=== PATIENT | female | born 1960 | race Caucasian/White ===

== ENCOUNTER 2019-10-13 11:33 | Emergency (ER) | payer OTHER ==
[2019-10-13] MEDS ORDERED: DIAZEPAM 5 MG/ML 2 ML INJ IVP STA (12:03)
[2019-10-13] MEDS ORDERED: KETOROLAC 60 MG/2 ML VIAL IVP STA (12:03)
--- NOTE | 2019-10-13 12:05 | ED ---
General Adult HPI - General Chief complaint: Back Pain/Injury Stated complaint: Back/abd pain Time Seen by Provider: 10/13/19 11:40 Source: patient, RN notes reviewed, old records reviewed Mode of arrival: ambulatory Limitations: no limitations - History of Present Illness Initial comments: This is a 59-year-old female presents emergency Department with chronic back pain. Patient states she's been working on her home quite a bit with her because they are building a new house. Patient states she started having mid back pain on both sides spine it radiates around to the flank. Patient denies any known injury. Patient states it hurts with movement. Patient states there's been no abdominal pain. She had some cramping this morning but that has been gone since then. Patient denies any dysuria hematuria urinary frequency. Patient denies any fever chills. - Related Data Home Medications Medication Instructions Recorded Confirmed ALPRAZolam [Xanax] 1 mg PO Q12H PRN 10/13/19 10/13/19 tiZANidine [Zanaflex] 4 mg PO Q12H PRN 10/13/19 10/13/19 traMADol HCL 50 mg PO Q6H PRN 10/13/19 10/13/19 Previous Rx's Medication Instructions Recorded tiZANidine [Zanaflex] 4 mg PO Q12H #20 tab 10/13/19 Allergies Allergy/AdvReac Type Severity Reaction Status Date / Time hydrocodone [From Vicodin] AdvReac Nausea & Verified 10/13/19 14:30 Vomiting Review of Systems ROS Statement: Those systems with pertinent positive or pertinent negative responses have been documented in the HPI. ROS Other: All systems not noted in ROS Statement are negative. Past Medical History Additional Past Medical History / Comment(s): back pain History of Any Multi-Drug Resistant Organisms: None Reported Past Surgical History: Orthopedic Surgery Additional Past Surgical History / Comment(s): knee replacement x 2, ankle surgery, neck surgery Past Psychological History: No Psychological Hx Reported Smoking Status: Light tobacco smoker Past Alcohol Use History: Occasional Past Drug Use History: None Reported General Exam - General Exam Comments Initial Comments: GENERAL: Patient is well-developed and well-nourished. Patient is nontoxic and well- hydrated and is in mild distress. ENT: Neck is soft and supple. No significant lymphadenopathy is noted. Oropharynx is clear. Moist mucous membranes. Neck has full range of motion without eliciting any pain. EYES: The sclera were anicteric and conjunctiva were pink and moist. Extraocular movements were intact and pupils were equal round and reactive to light. Eyelids were unremarkable. PULMONARY: Unlabored respirations. Good breath sounds bilaterally. No audible rales rhonchi or wheezing was noted. CARDIOVASCULAR: There is a regular rate and rhythm without any murmurs gallops or rubs. ABDOMEN: Soft and nontender with normal bowel sounds. No palpable organomegaly was noted. There is no palpable pulsatile mass. SKIN: Skin is clear with no lesions or rashes and otherwise unremarkable. NEUROLOGIC: Patient is alert and oriented x3. Cranial nerves II through XII are grossly intact. Motor and sensory are also intact. Normal speech, volume and content. Symmetrical smile. Patient's straight leg test was negative bilaterally. Patient had normal peritoneum exam. MUSCULOSKELETAL: Normal extremities with adequate strength and full range of motion. No lower extremity swelling or edema. No calf tenderness. Palpating the back and reproducible chest pain. LYMPHATICS: No significant lymphadenopathy is noted PSYCHIATRIC: Normal psychiatric evaluation. N Limitations: no limitations Course Vital Signs 10/13/19 11:37 Temperature 97.4 F L Pulse Rate 103 H Respiratory 20 Rate Blood Pressure 103/73 O2 Sat by Pulse 100 Oximetry Medical Decision Making - Medical Decision Making Patient received Toradol and Valium and found some relief but got complete relief after 1 mg Dilaudid. - Lab Data Result diagrams: 10/13/19 12:20 10/13/19 12:20 Lab Results 10/13/19 10/13/19 10/13/19 Range/Units 12:20 12:20 12:20 WBC 3.0 L (3.8-10.6) k/uL RBC 5.00 (3.80-5.40) m/uL Hgb 15.5 (11.4-16.0) gm/dL Hct 46.3 H (34.0-46.0) % MCV 92.6 (80.0-100.0) fL MCH 30.9 (25.0-35.0) pg MCHC 33.4 (31.0-37.0) g/dL RDW 13.3 (11.5-15.5) % Plt Count 155 (150-450) k/uL Neutrophils % 49 % Lymphocytes % 32 % Monocytes % 14 % Eosinophils % 0 % Basophils % 1 % Neutrophils # 1.5 (1.3-7.7) k/uL Lymphocytes # 1.0 (1.0-4.8) k/uL Monocytes # 0.4 (0-1.0) k/uL Eosinophils # 0.0 (0-0.7) k/uL Basophils # 0.0 (0-0.2) k/uL Sodium 137 (137-145) mmol/L Potassium 4.6 (3.5-5.1) mmol/L Chloride 110 H (98-107) mmol/L Carbon Dioxide 17 L (22-30) mmol/L Anion Gap 10 mmol/L BUN 23 H (7-17) mg/dL Creatinine 1.02 (0.52-1.04) mg/dL Est GFR (CKD-EPI)AfAm 70 (>60 ml/min/1.73 sqM) Est GFR (CKD-EPI)NonAf 61 (>60 ml/min/1.73 sqM) Glucose 89 (74-99) mg/dL Calcium 9.6 (8.4-10.2) mg/dL Magnesium 1.7 (1.6-2.3) mg/dL Total Bilirubin 0.5 (0.2-1.3) mg/dL AST 39 H (14-36) U/L ALT 42 H (4-34) U/L Alkaline Phosphatase 106 (38-126) U/L Total Protein 7.2 (6.3-8.2) g/dL Albumin 4.0 (3.5-5.0) g/dL Urine Color Yellow Urine Appearance Cloudy H (Clear) Urine pH 5.5 (5.0-8.0) Ur Specific [place] 1.027 (1.001-1.035) Urine Protein 1+ H (Negative) Urine Glucose (UA) Negative (Negative) Urine Ketones Negative (Negative) Urine Blood Negative (Negative) Urine Nitrite Negative (Negative) Urine Bilirubin Negative (Negative) Urine Urobilinogen 2.0 (<2.0) mg/dL Ur Leukocyte Esterase Large H (Negative) Urine WBC 23 H (0-5) /hpf Ur Squamous Epith Cells 11 H (0-4) /hpf Urine Bacteria Rare H (None) /hpf Hyaline Casts 10 H (0-2) /lpf Urine Mucus Few H (None) /hpf Disposition Clinical Impression: Thoracic back pain Disposition: HOME SELF-CARE Condition: Good Instructions (If sedation given, give patient instructions): Back Pain (ED) Prescriptions: tiZANidine [Zanaflex] 4 mg PO Q12H #20 tab Is patient prescribed a controlled substance at d/c from ED?: No Referrals: Nonstaff,Physician [Primary Care Provider] - 1-2 days Time of Disposition: 14:58
[2019-10-13 13:15] LABS: Appearance,Urine Cloudy (Clear); Bacteria,Urine Rare /hpf; Bilirubin,Urine Negative (Negative); Blood,Urine Negative (Negative); Color,Urine Yellow; Glucose,Urine (UA) Negative (Negative); Hyaline Casts,Urine 10 /lpf (0-2); Ketones,Urine Negative (Negative); Leukocyte Esterase,Urine Large (Negative); Mucus,Urine Few /hpf; Nitrite,Urine Negative (Negative); PH, Urine 5.5 (5.0-8.0); Protein,Urine 1+ (Negative); Specific Gravity,Urine 1.027 (1.001-1.035); Squamous Epithelial Cell,Urine 11 /hpf (0-4); WBC,Urine 23 /hpf (0-5)
[2019-10-13 13:18] LABS: Basophils % (A) 1 %; Eosinophils % (A) 0 %; HCT 46.3 % (34.0-46.0); HGB 15.5 gm/dL (11.4-16.0); Lymphocytes % (A) 32 %; MCH 30.9 pg (25.0-35.0); MCHC 33.4 g/dL (31.0-37.0); MCV 92.6 fL (80.0-100.0); Mean Platelet Volume 9.1; Monocytes # (A) 0.4 k/uL (0-1.0); Monocytes % (A) 14 %; Neutrophils # (A) 1.5 k/uL (1.3-7.7); Neutrophils % (A) 49 %; Platelet Count 155 k/uL (150-450); RDW 13.3 % (11.5-15.5)
[2019-10-13 13:19] LABS: Calcium 9.6 mg/dL (8.4-10.2); Magnesium 1.7 mg/dL (1.6-2.3); Potassium 4.6 mmol/L (3.5-5.1); Total Bilirubin 0.5 mg/dL (0.2-1.3); Total Protein 7.2 g/dL (6.3-8.2)
[2019-10-13] MEDS ORDERED: HYDROmorphone 1 MG/ML 1 ML SYRINGE IVP STA (13:56)
[2019-10-13 15:19] VITALS: BP 102/75; PULSE 66; RESP 18; TEMP 98.1
== END 2019-10-13 15:19 | disposition home or self-care (01) ==
LOC: EC 11:33
DX: M54.6 Pain in thoracic spine (principal); F17.200 Nicotine dependence, unspecified, uncomplicated; Z96.659 Presence of unspecified artificial knee joint; Z88.5 Allergy status to narcotic agent
CPT/HCPCS: 36415; 80053; 83735; 85025; 81001; 87086; 99284; 96374; 96375 ×2; J3360; J1885; J1170

== ENCOUNTER 2020-06-11 17:30 | Inpatient (IN) | payer OTHER ==
[2020-06-11] MEDS ORDERED: MORPHINE SULFATE 4 MG/ML SYRINGE IVP STA (18:11)
[2020-06-11] MEDS ORDERED: ONDANSETRON 4 MG/2 ML VIAL IVP STA ×2 (18:11→20:19)
[2020-06-11] MEDS ORDERED: SODIUM CHLORIDE 0.9% 1,000 ML IV ONE (18:12)
--- NOTE | 2020-06-11 18:27 | ED ---
Abdominal Pain HPI - General Chief Complaint: Abdominal Pain Stated Complaint: abd pain Time Seen by Provider: 06/11/20 17:35 Source: patient Mode of arrival: ambulatory Limitations: no limitations - History of Present Illness Initial Comments: Patient is a 60 year old female past medical history of peptic ulcer disease presents emergency room with reported epigastric abdominal pain. States that for the past 3 week she's had pain in epigastric region which occurs after she eats. Pain radiates around to her back. Reports that the pain was significant this morning after she ate rogers and eggs. His had multiple episodes of nonbilious, nonbloody vomiting. Denies ripping or tearing sensation. No previous history of cardiac disease. Denies shortness of breath. Admits to constipation. No melenic stools or hematochezia. No dysuria, hematuria or difficult voiding. Patient is in menopause. Denies concern for . No abnormal vaginal bleeding or discharge. He was seen recently in the emergency room and diagnosed with back pain. No other alleviating, Perceptin or modifying factors - Related Data Home Medications Medication Instructions Recorded Confirmed ALPRAZolam [Xanax] 1 mg PO Q12H PRN 10/13/19 06/11/20 tiZANidine [Zanaflex] 4 mg PO Q12H PRN 10/13/19 06/11/20 traMADol HCL 50 mg PO Q6H PRN 10/13/19 06/11/20 [id number] 2 tab PO DAILY PRN 06/11/20 06/11/20 [Excedrin] Esomeprazole Magnesium [NexIUM] 20 mg PO BID 06/11/20 06/11/20 Previous Rx's Medication Instructions Recorded Levofloxacin [Levaquin] 500 mg PO Q24H 7 Days #7 tab 06/16/20 Allergies Allergy/AdvReac Type Severity Reaction Status Date / Time hydrocodone [From Vicodin] AdvReac Nausea & Verified 06/11/20 20:47 Vomiting hydromorphone [From Dilaudid] AdvReac Nausea & Verified 06/12/20 12:00 Vomiting Review of Systems ROS Statement: Those systems with pertinent positive or pertinent negative responses have been documented in the HPI. ROS Other: All systems not noted in ROS Statement are negative. Past Medical History Additional Past Medical History / Comment(s): back pain, PUD, History of Any Multi-Drug Resistant Organisms: None Reported Past Surgical History: Orthopedic Surgery Additional Past Surgical History / Comment(s): knee replacement x 2, ankle surgery, neck surgery Past Psychological History: No Psychological Hx Reported Smoking Status: Former smoker Past Alcohol Use History: Occasional Past Drug Use History: None Reported - Past Family History Father Family Medical History: Coronary Artery Disease (CAD) Mother Family Medical History: No Reported History General Exam Limitations: no limitations General appearance: alert, in distress (in pain) Head exam: Present: atraumatic, normocephalic, normal inspection Eye exam: Present: normal appearance, PERRL, EOMI. Absent: scleral icterus, conjunctival injection, periorbital swelling ENT exam: Present: normal exam, mucous membranes moist Neck exam: Present: normal inspection. Absent: tenderness, meningismus, lymphadenopathy Respiratory exam: Present: normal lung sounds bilaterally. Absent: respiratory distress, wheezes, rales, rhonchi, stridor Cardiovascular Exam: Present: regular rate, normal rhythm, normal heart sounds. Absent: systolic murmur, diastolic murmur, rubs, gallop, clicks GI/Abdominal exam: Present: soft, tenderness (epigastric), normal bowel sounds. Absent: distended, guarding, rebound, rigid Extremities exam: Present: normal inspection, full ROM, normal capillary refill. Absent: tenderness, pedal edema, joint swelling, calf tenderness Back exam: Present: normal inspection Neurological exam: Present: alert, oriented X3, CN II-XII intact Psychiatric exam: Present: normal affect, normal mood Skin exam: Present: warm, dry, intact, normal color. Absent: rash Course Vital Signs 06/11/20 06/11/20 17:34 20:00 Temperature 98.6 F Pulse Rate 80 96 Respiratory 16 18 Rate Blood Pressure 142/72 136/72 O2 Sat by Pulse 100 99 Oximetry Medical Decision Making - Medical Decision Making Upon arrival patient placed into room 3. A thorough history and physical exam was performed. Laboratory studies were conducted. Patient was given 4 mg of morphine and 4 mg of Zofran for pain and nausea. Laboratory studies are remarkable for a white count of 12.4. Total bilirubin 1.8, AST 405, ALT 356, alk phos 447, LDH 822, lipase is greater than 20,000. CT consistent with pancreatitis as there are inflammatory changes adjacent to the body of the pancr eas. Distended gallbladder. Very prominent common bile duct. 12 are ultrasound is performed which demonstrates a 1.6 cm dilated common bile duct. Patient is given a dose of Zosyn. Chace score is 3. Patient will be admitted to [facility]. Discuss case Dr. Patel who accepted admission. I discussed the case with Dr. Carty who is on-call for surgery. GI will also be placed on consult. Patient will be made nothing by mouth at midnight. Pain and nausea medications ordered. Patient remained in stable condition awaiting a bed on the floor - Lab Data Result diagrams: 06/16/20 06:15 06/16/20 06:15 Lab Results 06/11/20 06/11/20 06/11/20 Range/Units 18:32 18:32 18:32 WBC 12.4 H (3.8-10.6) k/uL RBC 4.08 (3.80-5.40) m/uL Hgb 12.6 (11.4-16.0) gm/dL Hct 38.9 (34.0-46.0) % MCV 95.2 (80.0-100.0) fL MCH 30.7 (25.0-35.0) pg MCHC 32.3 (31.0-37.0) g/dL RDW 13.3 (11.5-15.5) % Plt Count 243 (150-450) k/uL Neutrophils % 82 % Lymphocytes % 12 % Monocytes % 3 % Eosinophils % 3 % Basophils % 0 % Neutrophils # 10.1 H (1.3-7.7) k/uL Lymphocytes # 1.5 (1.0-4.8) k/uL Monocytes # 0.4 (0-1.0) k/uL Eosinophils # 0.3 (0-0.7) k/uL Basophils # 0.0 (0-0.2) k/uL PT 10.0 (9.0-12.0) sec INR 1.0 (<1.2) APTT 18.6 L (22.0-30.0) sec Sodium (137-145) mmol/L Potassium (3.5-5.1) mmol/L Chloride (98-107) mmol/L Carbon Dioxide (22-30) mmol/L Anion Gap mmol/L BUN (7-17) mg/dL Creatinine (0.52-1.04) mg/dL Est GFR (CKD-EPI)AfAm (>60 ml/min/1.73 sqM) Est GFR (CKD-EPI)NonAf (>60 ml/min/1.73 sqM) Glucose (74-99) mg/dL Plasma Lactic Acid [place] (0.7-2.0) mmol/L Calcium (8.4-10.2) mg/dL Total Bilirubin (0.2-1.3) mg/dL AST (14-36) U/L ALT (4-34) U/L Alkaline Phosphatase (38-126) U/L Total Protein (6.3-8.2) g/dL Albumin (3.5-5.0) g/dL Lipase (23-300) U/L Urine Color Yellow Urine Appearance Clear (Clear) Urine pH 7.5 (5.0-8.0) Ur Specific [place] 1.025 (1.001-1.035) Urine Protein Negative (Negative) Urine Glucose (UA) Negative (Negative) Urine Ketones Trace H (Negative) Urine Blood Negative (Negative) Urine Nitrite Negative (Negative) Urine Bilirubin Negative (Negative) Urine Urobilinogen <2.0 (<2.0) mg/dL Ur Leukocyte Esterase Negative (Negative) 06/11/20 06/11/20 Range/Units 18:32 18:32 WBC (3.8-10.6) k/uL RBC (3.80-5.40) m/uL Hgb (11.4-16.0) gm/dL Hct (34.0-46.0) % MCV (80.0-100.0) fL MCH (25.0-35.0) pg MCHC (31.0-37.0) g/dL RDW (11.5-15.5) % Plt Count (150-450) k/uL Neutrophils % % Lymphocytes % % Monocytes % % Eosinophils % % Basophils % % Neutrophils # (1.3-7.7) k/uL Lymphocytes # (1.0-4.8) k/uL Monocytes # (0-1.0) k/uL Eosinophils # (0-0.7) k/uL Basophils # (0-0.2) k/uL PT (9.0-12.0) sec INR (<1.2) APTT (22.0-30.0) sec Sodium 138 (137-145) mmol/L Potassium 4.7 (3.5-5.1) mmol/L Chloride 105 (98-107) mmol/L Carbon Dioxide 25 (22-30) mmol/L Anion Gap 8 mmol/L BUN 20 H (7-17) mg/dL Creatinine 0.80 (0.52-1.04) mg/dL Est GFR (CKD-EPI)AfAm >90 (>60 ml/min/1.73 sqM) Est GFR (CKD-EPI)NonAf 81 (>60 ml/min/1.73 sqM) Glucose 98 (74-99) mg/dL Plasma Lactic Acid [place] 1.9 (0.7-2.0) mmol/L Calcium 9.5 (8.4-10.2) mg/dL Total Bilirubin 1.8 H (0.2-1.3) mg/dL AST 405 H (14-36) U/L ALT 356 H (4-34) U/L Alkaline Phosphatase 447 H (38-126) U/L Total Protein 6.8 (6.3-8.2) g/dL Albumin 3.9 (3.5-5.0) g/dL Lipase >59006 H (23-300) U/L Urine Color Urine Appearance (Clear) Urine pH (5.0-8.0) Ur Specific [place] (1.001-1.035) Urine Protein (Negative) Urine Glucose (UA) (Negative) Urine Ketones (Negative) Urine Blood (Negative) Urine Nitrite (Negative) Urine Bilirubin (Negative) Urine Urobilinogen (<2.0) mg/dL Ur Leukocyte Esterase (Negative) - EKG Data EKG Comments: EKG demonstrates a normal sinus rhythm with occasional PVCs. Rate of 92. LA interval 156. QRS 86. QTC of 464. Occasional PVCs. No acute ST segment elevations or depressions Disposition Clinical Impression: Acute pancreatitis, Abdominal pain, Transaminitis, Nausea and vomiting Disposition: ADMITTED IP TO [facility] Condition: Fair Is patient prescribed a controlled substance at d/c from ED?: No Decision to Admit Reason: Admit from EC Decision Date: 06/11/20 Decision Time: 20:19
[2020-06-11 18:43] LABS: Basophils % (A) 0 %; Eosinophils # (A) 0.3 k/uL (0-0.7); Eosinophils % (A) 3 %; HCT 38.9 % (34.0-46.0); HGB 12.6 gm/dL (11.4-16.0); Lymphocytes # (A) 1.5 k/uL (1.0-4.8); Lymphocytes % (A) 12 %; MCH 30.7 pg (25.0-35.0); MCHC 32.3 g/dL (31.0-37.0); MCV 95.2 fL (80.0-100.0); Monocytes # (A) 0.4 k/uL (0-1.0); Monocytes % (A) 3 %; Neutrophils # (A) 10.1 k/uL (1.3-7.7); Neutrophils % (A) 82 %; Platelet Count 243 k/uL (150-450); RBC 4.08 m/uL (3.80-5.40); RDW 13.3 % (11.5-15.5); WBC 12.4 k/uL (3.8-10.6)
[2020-06-11 19:01] LABS: Partial Thromboplastin Time 18.6 sec (22.0-30.0)
[2020-06-11 19:03] LABS: ALT 356 U/L (4-34); AST 405 U/L (14-36); African American GFR (CKD) >90 (>60 ml/min/1.73 sqM); Albumin 3.9 g/dL (3.5-5.0); Alkaline Phosphatase 447 U/L (38-126); Anion Gap 8 mmol/L; Blood Urea Nitrogen 20 mg/dL (7-17); Calcium 9.5 mg/dL (8.4-10.2); Carbon Dioxide 25 mmol/L (22-30); Chloride 105 mmol/L (98-107); Glucose 98 mg/dL (74-99); Non-African American GFR(CKD) 81 (>60 ml/min/1.73 sqM); Potassium 4.7 mmol/L (3.5-5.1); Sodium 138 mmol/L (137-145); Total Bilirubin 1.8 mg/dL (0.2-1.3); Total Protein 6.8 g/dL (6.3-8.2)
--- NOTE | 2020-06-11 19:26 | CT ---
EXAMINATION TYPE: CT abdomen pelvis w con DATE OF EXAM: 06/11/2020 COMPARISON: None INDICATION: abdomen pain DLP: 850.1 mGycm, Automated exposure control for dose reduction was used. CONTRAST: 100 mL of Isovue 300. Study performed without Oral Contrast TECHNIQUE: Axial images were obtained from above the diaphragm to the pubic rami in the axial plane a t 5 mm thick sections. Reconstructed images are reviewed on the computer in the coronal plane. FINDINGS: Limited CT sections are obtained the lung bases. The lung bases are clear. CT ABDOMEN: Liver: Intrahepatic biliary dilatation centrally is present. Spleen: Normal Pancreas: Some inflammatory changes are adjacent to the body the pancreas. Correlate for acute pancre atitis. Adrenal glands: The adrenal glands are normal. Gallbladder: Distended. Common bile duct is very prominent. This extends to the head of the pancreas. Kidneys: No masses are evident. No hydronephrosis is present. No cysts are present. Delayed images were obtained through the kidneys, which remain unremarkable. Aorta: Normal Inferior vena cava: Normal. CT PELVIS: Multiple diverticuli are within the sigmoid colon. No acute diverticulitis is evident. Small bowel lo ops appear unremarkable. Study is without contrast limiting bowel evaluation Appendix: Normal as visualized. No inflammatory changes are evident. Urinary bladder: Normal. Genitourinary structures: Uterus and ovaries are normal. Osseous structures: No suspicious lytic or sclerotic lesions. Degenerative disc changes are present L 5-S1. Degenerative disc changes are noted at L4-5. IMPRESSIONS: 1. Inflammatory changes adjacent to the body the pancreas. Correlate for acute pancreatitis. No pseu docyst formation or abscess formation is identified at this time. 2. Distended gallbladder with very prominent common bile duct. Some hepatic bile duct dilatation is p resent.
[2020-06-11] MEDS ORDERED: NALOXONE 0.4 MG/ML 1 ML VIAL IV PRN (20:20)
[2020-06-11] MEDS ORDERED: ACETAMINOPHEN TAB 325 MG TAB PO STA (20:20)
[2020-06-11] MEDS ORDERED: ONDANSETRON 4 MG/2 ML VIAL IVP PRN (20:20)
--- NOTE | 2020-06-11 20:33 | US ---
EXAMINATION TYPE: US gallbladder DATE OF EXAM: 06/11/2020 COMPARISON: CT 06/11/2020 CLINICAL HISTORY: abd pain. EXAM MEASUREMENTS: Liver Length: 16.7 cm Gallbladder Wall: 0.4 cm CBD: 1.6 cm Right Kidney: 9.2 x 4.6 x 4.5 cm Pancreas: prominent duct at 0.4 cm Liver: intrahepatic ductal dilatation Gallbladder: distended at 11.0 cm Evidence for sonographic Mortensen's sign: Yes CBD: dilated at 1.6 cm Right Kidney: No hydronephrosis or masses seen IMPRESSION: 1. Distended gallbladder with dilated common bile duct and a positive Mortensen sign. Correlate for acut e cholecystitis. Note is made of intrahepatic clearly duct dilatation. 2. Prominent pancreatic duct. Follow-up is recommended.
[2020-06-11] MEDS ORDERED: PIPERACILLIN-TAZOBACTAM 3.375 GM in SODIUM CHLORIDE 0.9% 100 ML IVPB STA (20:43)
[2020-06-11 22:11] LABS: Appearance,Urine Clear (Clear); Bilirubin,Urine Negative (Negative); Blood,Urine Negative (Negative); Color,Urine Yellow; Glucose,Urine (UA) Negative (Negative); Ketones,Urine Trace (Negative); Leukocyte Esterase,Urine Negative (Negative); Nitrite,Urine Negative (Negative); PH, Urine 7.5 (5.0-8.0); Protein,Urine Negative (Negative); Specific Gravity,Urine 1.025 (1.001-1.035); Urobilinogen,Urine <2.0 mg/dL (<2.0)
[2020-06-11] MEDS: MORPHINE SULFATE 4 MG/ML SYRINGE IV PRN (22:20)
[2020-06-11] MEDS: SODIUM CHLORIDE 0.9% 1,000 ML IV SCH (22:23)
[2020-06-11] MEDS ORDERED: MORPHINE SULFATE 2 MG/ML SYRINGE IVP STA (22:53)
[2020-06-11] MEDS ORDERED: KETOROLAC 15 MG/ML 1 ML VIAL IVP STA (22:53)
[2020-06-12] MEDS: MORPHINE SULFATE 4 MG/ML SYRINGE IV PRN ×2 (03:14→06:47)
[2020-06-12] MEDS ORDERED: KETOROLAC 15 MG/ML 1 ML VIAL IVP STA (04:40)
--- NOTE | 2020-06-12 04:41 | P.HPIM ---
History of Present Illness H&P Date: 06/11/20 The patient is a 70-year-old female with a PMH of peptic ulcer disease presented to the ED with complaints of abdominal pain. She notes that she has been suffering with chronic abdominal pain for many years, and has undergone multiple evaluations which have yielded no results as per the patient. She notes however that over the past few weeks, her epigastric discomfort has worsened, associated with food (particularly fatty meals). She notes that today however her pain increased to a 10 out of 10, epigastric, radiating to the back, with associated nausea and 3 episodes of nonbloody emesis today. Denied diarrhea. Denied urinary complaints. At time of interview, reported continued 8 out of 10 epigastric pain. Reports drinking only 1-2 beers socially. In the emergency room, CT abdomen revealed findings consistent with pancreatitis along with a distended gallbladder with very prominent common bile duct and some hepatic biliary ductal dilatation. Vital signs were BP 135/80, T-max 100.2, pulse 95, and saturating 100% on room air. EKG reveals sinus rhythm with PVCs at 92 bpm. Laboratory evaluation revealed a lipase greater than 20,000, AST 45, ALT 356, total bilirubin 1.8, alkaline phosphatase 47, LDH 822, and WBC count 12.4. Review of Systems Pertinent positives and negatives as discussed in HPI, a complete review of systems was performed and all other systems are negative. Past Medical History Additional Past Medical History / Comment(s): back pain, PUD, History of Any Multi-Drug Resistant Organisms: None Reported Past Surgical History: Section, Orthopedic Surgery Additional Past Surgical History / Comment(s): knee replacement x 2, ankle surgery, neck surgery Past Anesthesia/Blood Transfusion Reactions: No Reported Reaction Past Psychological History: Anxiety Smoking Status: Former smoker Past Alcohol Use History: Occasional Past Drug Use History: None Reported Additional Drug Use History / Comment(s): patient states she used to smoke cigarettes occasionally when drinking alcohol, no longer smokes. - Past Family History Father Family Medical History: Coronary Artery Disease (CAD) Mother Family Medical History: No Reported History Medications and Allergies Home Medications Medication Instructions Recorded Confirmed Type ALPRAZolam [Xanax] 1 mg PO Q12H PRN 10/13/19 06/11/20 History tiZANidine [Zanaflex] 4 mg PO Q12H PRN 10/13/19 06/11/20 History traMADol HCL 50 mg PO Q6H PRN 10/13/19 06/11/20 History [id number] 2 tab PO DAILY PRN 06/11/20 06/11/20 History [Excedrin] Esomeprazole Magnesium [NexIUM] 20 mg PO BID 06/11/20 06/11/20 History Allergies Allergy/AdvReac Type Severity Reaction Status Date / Time hydrocodone [From Vicodin] AdvReac Nausea & Verified 06/11/20 20:47 Vomiting Physical Exam Vitals: Vital Signs Temp Pulse Pulse Resp BP BP Pulse Ox 06/11/20 22:02 98.9 F 90 18 139/78 100 06/11/20 21:45 100.2 F H 95 20 135/80 100 06/11/20 20:00 96 18 136/72 99 06/11/20 17:34 98.6 F 80 16 142/72 100 Intake and Output 06/11/20 06/11/20 06/12/20 14:59 22:59 06:59 Output Total 375 Balance -375 Output: Urine 375 Other: # Voids 1 Weight 70.5 kg General: non toxic, in mild distress, appears at stated age Derm: no unusual rashes/lesions no unusual ecchymoses, warm, dry Head: atraumatic, normocephalic, symmetric Eyes: EOMI, no lid lag, anicteric sclera, pupils equal round reactive to light ENT: Nose and ears atraumatic, no thrush, no pharyngeal erythema Neck: No thyromegaly, no cervical lymphadenopathy, trachea midline, supple Mouth: no lip lesion, mucus membranes moist Cardiovascular: S1S2 reg, no murmur, positive posterior tibial pulse bilateral, no edema, capillary refill less than 2 seconds Lungs: CTA bilateral, no rhonchi, no rales , no accessory muscle use Abdominal: soft, epigastric tenderness to palpation with some guarding, no appreciable organomegaly Ext: no gross muscle atrophy, muscle strength 5 out of 5 in all 4 extremities grossly, no contractures, Neuro: CN II-XI grossly intact, light touch intact all 4 extremities, finger to nose within normal limits, Psych: Alert, oriented, appropriate affect Results CBC & Chem 7: 06/11/20 18:32 06/11/20 18:32 Labs: Abnormal Lab Results - Last 24 Hours (Table) 06/11/20 06/11/20 06/11/20 Range/Units 18:32 18:32 18:32 WBC 12.4 H (3.8-10.6) k/uL Neutrophils # 10.1 H (1.3-7.7) k/uL APTT 18.6 L (22.0-30.0) sec BUN (7-17) mg/dL Total Bilirubin (0.2-1.3) mg/dL AST (14-36) U/L ALT (4-34) U/L Alkaline Phosphatase (38-126) U/L Lipase (23-300) U/L Urine Ketones Trace H (Negative) 06/11/20 Range/Units 18:32 WBC (3.8-10.6) k/uL Neutrophils # (1.3-7.7) k/uL APTT (22.0-30.0) sec BUN 20 H (7-17) mg/dL Total Bilirubin 1.8 H (0.2-1.3) mg/dL AST 405 H (14-36) U/L ALT 356 H (4-34) U/L Alkaline Phosphatase 447 H (38-126) U/L Lipase >47097 H (23-300) U/L Urine Ketones (Negative) Thrombosis Risk Factor Assmnt - Choose All That Apply Any of the Below Risk Factors Present?: No Each Factor Represents 1 point: Age 41-60 years Other Risk Factors: No Other congenital or acquired thrombophilia - If yes, enter type in comment: No Thrombosis Risk Factor Assessment Total Risk Factor Score: 1 Thrombosis Risk Factor Assessment Level: Very Low Risk Assessment and Plan Plan: Acute cholangitis with pancreatitis -Continue with pain control -GI consult -Nothing by mouth -IV fluids -Continue with Zosyn 3.35 grams every 6 hourly -Anti-emetics DVT prophylaxis -Heparin subq The patient is admitted with an anticipated greater than 2 midnight stay for evaluation of cholangitis CODE STATUS: Full Code Discussed with: Patient Anticipated discharge date: 2-[address]: Home A total of 35 minutes was spent on the care of this complex patient more than 50% of the time was spent in counseling and care coordination.
[2020-06-12] MEDS ORDERED: PIPERACILLIN-TAZOBACTAM 3.375 GM in SODIUM CHLORIDE 0.9% 100 ML IVPB SCH (05:30)
[2020-06-12 05:57] LABS: Basophils % (A) 0 %; Eosinophils % (A) 1 %; HCT 36.5 % (34.0-46.0); HGB 11.3 gm/dL (11.4-16.0); Lymphocytes # (A) 0.7 k/uL (1.0-4.8); Lymphocytes % (A) 13 %; MCH 29.9 pg (25.0-35.0); MCV 96.6 fL (80.0-100.0); Mean Platelet Volume 8.5; Monocytes # (A) 0.4 k/uL (0-1.0); Monocytes % (A) 7 %; Neutrophils % (A) 77 %; Platelet Count 166 k/uL (150-450); RBC 3.78 m/uL (3.80-5.40); RDW 13.3 % (11.5-15.5); WBC 5.2 k/uL (3.8-10.6)
[2020-06-12 06:09] LABS: African American GFR (CKD) >90 (>60 ml/min/1.73 sqM); Anion Gap 2 mmol/L; Blood Urea Nitrogen 16 mg/dL (7-17); Calcium 8.3 mg/dL (8.4-10.2); Carbon Dioxide 27 mmol/L (22-30); Chloride 111 mmol/L (98-107); Glucose 91 mg/dL (74-99); Non-African American GFR(CKD) 87 (>60 ml/min/1.73 sqM); Potassium 4.7 mmol/L (3.5-5.1); Sodium 140 mmol/L (137-145)
[2020-06-12] MEDS: SODIUM CHLORIDE 0.9% 1,000 ML IV SCH ×4 (06:47→22:27)
[2020-06-12] MEDS: PIPERACILLIN-TAZOBACTAM 3.375 GM in SODIUM CHLORIDE 0.9% 100 ML IVPB SCH ×3 (06:50→23:02)
[2020-06-12] MEDS ORDERED: HYDROmorphone 0.5 MG/0.5 ML SYRINGE IVP PRN (08:14)
[2020-06-12] MEDS: HEPARIN SODIUM,PORCINE 5,000 UNIT/ML 1 ML VIAL SQ SCH ×3 (08:19→23:02)
--- NOTE | 2020-06-12 08:38 | P.PN ---
Subjective Progress Note Date: 06/12/20 Principal diagnosis: belly pain Patient is a 60-year-old female with chronic back and neck pain, peptic ulcer disease, prior tobacco abuse who presented to the hospital with complaints of abdominal pain. In the ER she underwent an extensive evaluation. On arrival her vital signs were within normal limits. She did reach a T-max of 100.2 on the ER. Initial laboratory analysis showed white blood cell count 12.4, total bilirubin 1.8, AST 405, ALT 356 alkaline phosphatase 447, lipase greater than 20,000, LDH 822, urinalysis is negative. She underwent a CT abdomen and pelvis which demonstrated inflammatory changes adjacent to the body of the pancreas with no pseudocyst or abscess formation. Also noted a distended gallbladder with very prominent common bile duct and some hepatic duct dilatation. She subsequently underwent a gallbladder ultrasound which showed a distended gallbladder with dilated common bile duct and a positive Mortensen sign. She was started on IV fluids, pain control, antiemetics, Rocephin, and Flagyl. She was admitted for further monitoring. GI and general surgery were consulted. Patient seen and examined at bedside. She reports that her pain is much better than yesterday. She is not having any nausea. Morphine is working well. She is having some chronic neck pain which is typical for her. She reports that she has had intermittent abdominal pain for years with her has diagnosis gallbladder dysfunction though no doctor has. She has no other complaints currently. General: Ill appearing, mild distress,, appears at stated age Derm: warm, dry Head: atraumatic, normocephalic, symmetric Eyes: EOMI, no lid lag, anicteric sclera Mouth: no lip lesion, mucus membranes moist Cardiovascular: S1S2 reg, no murmur, positive posterior tibial pulse bilateral, Lungs: CTA bilateral, no rhonchi, no rales , no accessory muscle use Abdominal: soft, tender to palpation right upper quadrant and right lower quadrant, no guarding, no appreciable organomegaly Ext: no gross muscle atrophy, no edema, no contractures Neuro: CN II-XI grossly intact, no focal neuro deficits Psych: Alert, oriented, appropriate affect Acute cholecystitis with acute pancreatitis secondary to gallbladder dysfunction, with sepsis -IV fluids -Nothing by mouth -Pain control -Antiemetics -Rocephin and Flagyl -Await GI recommendations -Await surgery recommendations -Discussed with patient likely ERCP followed by cholecystectomy at a later date. Transaminitis secondary to above -Supportive care -Follow liver enzymes Chronic pain due to Arthritis -Continue with Toradol -Supportive care DVT prophylaxis: Heparin Discussed with: Patient, nursing Anticipated discharge: 3-[address]: Home A total of 35 minutes was spent on the care of this complex patient more than 50% of the time was spent in counseling and care coordination. Objective - Vital Signs Vital signs: Vital Signs Temp 98.5 F 06/12/20 08:15 Pulse 64 06/12/20 08:15 Resp 16 06/12/20 08:15 BP 121/77 06/12/20 08:15 Pulse Ox 100 06/12/20 08:15 Intake & Output 06/11/20 06/12/20 06/12/20 18:59 06:59 18:59 Intake Total 1700 Output Total 725 Balance 975 Weight 63.503 kg 70.5 kg Intake: Intake, IV Titration 1700 Amount Piperacillin-Tazobactam 3 100 .375 gm In Sodium Chloride 0.9% 100 ml @ 200 mls/hr IVPB ONCE [facility] Rx#:[id number] Sodium Chloride 0.9% 1, 1600 000 ml @ 200 mls/hr IV . Q5H [facility] Rx#:[id number] Output: Urine 725 Other: # Voids 1 - Labs CBC & Chem 7: 06/12/20 05:41 06/12/20 05:41 Labs: Abnormal Lab Results - Last 24 Hours (Table) 06/11/20 06/11/20 06/11/20 Range/Units 18:32 18:32 18:32 WBC 12.4 H (3.8-10.6) k/uL RBC (3.80-5.40) m/uL Hgb (11.4-16.0) gm/dL Neutrophils # 10.1 H (1.3-7.7) k/uL Lymphocytes # (1.0-4.8) k/uL APTT 18.6 L (22.0-30.0) sec Chloride (98-107) mmol/L BUN (7-17) mg/dL Calcium (8.4-10.2) mg/dL Total Bilirubin (0.2-1.3) mg/dL AST (14-36) U/L ALT (4-34) U/L Alkaline Phosphatase (38-126) U/L Lactate Dehydrogenase (313-618) U/L Lipase (23-300) U/L Urine Ketones Trace H (Negative) 06/11/20 06/11/20 06/12/20 Range/Units 18:32 23:30 05:41 WBC (3.8-10.6) k/uL RBC 3.78 L (3.80-5.40) m/uL Hgb 11.3 L (11.4-16.0) gm/dL Neutrophils # (1.3-7.7) k/uL Lymphocytes # 0.7 L (1.0-4.8) k/uL APTT (22.0-30.0) sec Chloride (98-107) mmol/L BUN 20 H (7-17) mg/dL Calcium (8.4-10.2) mg/dL Total Bilirubin 1.8 H (0.2-1.3) mg/dL AST 405 H (14-36) U/L ALT 356 H (4-34) U/L Alkaline Phosphatase 447 H (38-126) U/L Lactate Dehydrogenase 822 H (313-618) U/L Lipase >28145 H (23-300) U/L Urine Ketones (Negative) 06/12/20 Range/Units 05:41 WBC (3.8-10.6) k/uL RBC (3.80-5.40) m/uL Hgb (11.4-16.0) gm/dL Neutrophils # (1.3-7.7) k/uL Lymphocytes # (1.0-4.8) k/uL APTT (22.0-30.0) sec Chloride 111 H (98-107) mmol/L BUN (7-17) mg/dL Calcium 8.3 L (8.4-10.2) mg/dL Total Bilirubin (0.2-1.3) mg/dL AST (14-36) U/L ALT (4-34) U/L Alkaline Phosphatase (38-126) U/L Lactate Dehydrogenase (313-618) U/L Lipase 4577 H (23-300) U/L Urine Ketones (Negative)
[2020-06-12 09:03] LABS: Total Bilirubin 2.4 mg/dL (0.2-1.3)
--- NOTE | 2020-06-12 09:28 | P.GSCN ---
History of Present Illness Consult date: 06/12/20 History of present illness: 60-year-old female presented to the emergency department with significant epigastric pain that radiated to her back. She also was noted to have a Tmax of 100.2. She states that she has had these episodes previously, but does not always present to receive any medical care. On workup, the patient was found to have a significant elevation of lipase greater than 20,000 and leukocytosis of 12.4 along with elevation in the transaminases and total bilirubin. CT of the abdomen and pelvis resulted with inflammatory changes around the pancreas. She also did undergo an ultrasound of the gallbladder which did reveal a distended gallbladder along with a dilated common bile duct. She was started on IV antibiotics and IV fluids. Today, on exam, the patient states that she is feeling better, however still having some epigastric and right upper quadrant pain. She states that prior to her arrival to the hospital, she did have multiple nausea and emesis episodes. She has not had any nausea today. She states that she has chronic constipation. She has had previous EGD and colonoscopy. She denies any previous abdominal surgery. Review of Systems All systems: negative Past Medical History Additional Past Medical History / Comment(s): back pain, PUD, History of Any Multi-Drug Resistant Organisms: None Reported Past Surgical History: Section, Orthopedic Surgery Additional Past Surgical History / Comment(s): knee replacement x 2, ankle surgery, neck surgery Past Anesthesia/Blood Transfusion Reactions: No Reported Reaction Past Psychological History: Anxiety Smoking Status: Former smoker Past Alcohol Use History: Occasional Past Drug Use History: None Reported Additional Drug Use History / Comment(s): patient states she used to smoke cigarettes occasionally when drinking alcohol, no longer smokes. - Past Family History Father Family Medical History: Coronary Artery Disease (CAD) Mother Family Medical History: No Reported History Medications and Allergies Home Medications Medication Instructions Recorded Confirmed Type ALPRAZolam [Xanax] 1 mg PO Q12H PRN 10/13/19 06/11/20 History tiZANidine [Zanaflex] 4 mg PO Q12H PRN 10/13/19 06/11/20 History traMADol HCL 50 mg PO Q6H PRN 10/13/19 06/11/20 History Ovtgcif-Cqra-Xzaj [id number] 2 tab PO DAILY PRN 06/11/20 06/11/20 History [Excedrin] Esomeprazole Magnesium [NexIUM] 20 mg PO BID 06/11/20 06/11/20 History Allergies Allergy/AdvReac Type Severity Reaction Status Date / Time hydrocodone [From Vicodin] AdvReac Nausea & Verified 06/11/20 20:47 Vomiting Surgical - Exam Osteopathic Statement: *. No significant issues noted on an osteopathic structural exam other than those noted in the History and Physical/Consult. Vital Signs Temp Pulse Resp BP Pulse Ox 98.6 F 80 16 142/72 100 06/11/20 17:34 06/11/20 17:34 06/11/20 17:34 06/11/20 17:34 06/11/20 17:34 - General well developed, well nourished, no distress - Eyes PERRL - ENT normal nares, normal mucosa, no hearing loss - Neck no bruits, trachea midline - Respiratory normal respiratory effort - Abdomen Soft, mild tenderness to palpation in the epigastrium and right upper quadrant, nondistended, no rebound, no guarding - Neurologic normal coordination, normal sensation - Psychiatric oriented to time, oriented to person, oriented to place Results - Labs 06/12/20 05:41 06/12/20 05:41 Abnormal Lab Results - Last 24 Hours (Table) 06/11/20 06/11/20 06/11/20 Range/Units 18:32 18:32 18:32 WBC 12.4 H (3.8-10.6) k/uL RBC (3.80-5.40) m/uL Hgb (11.4-16.0) gm/dL Neutrophils # 10.1 H (1.3-7.7) k/uL Lymphocytes # (1.0-4.8) k/uL APTT 18.6 L (22.0-30.0) sec Chloride (98-107) mmol/L BUN (7-17) mg/dL Calcium (8.4-10.2) mg/dL Total Bilirubin (0.2-1.3) mg/dL AST (14-36) U/L ALT (4-34) U/L Alkaline Phosphatase (38-126) U/L Lactate Dehydrogenase (313-618) U/L Lipase (23-300) U/L Urine Ketones Trace H (Negative) 06/11/20 06/11/20 06/12/20 Range/Units 18:32 23:30 05:41 WBC (3.8-10.6) k/uL RBC 3.78 L (3.80-5.40) m/uL Hgb 11.3 L (11.4-16.0) gm/dL Neutrophils # (1.3-7.7) k/uL Lymphocytes # 0.7 L (1.0-4.8) k/uL APTT (22.0-30.0) sec Chloride (98-107) mmol/L BUN 20 H (7-17) mg/dL Calcium (8.4-10.2) mg/dL Total Bilirubin 1.8 H (0.2-1.3) mg/dL AST 405 H (14-36) U/L ALT 356 H (4-34) U/L Alkaline Phosphatase 447 H (38-126) U/L Lactate Dehydrogenase 822 H (313-618) U/L Lipase >27938 H (23-300) U/L Urine Ketones (Negative) 06/12/20 06/12/20 Range/Units 05:41 05:41 WBC (3.8-10.6) k/uL RBC (3.80-5.40) m/uL Hgb (11.4-16.0) gm/dL Neutrophils # (1.3-7.7) k/uL Lymphocytes # (1.0-4.8) k/uL APTT (22.0-30.0) sec Chloride 111 H (98-107) mmol/L BUN (7-17) mg/dL Calcium 8.3 L (8.4-10.2) mg/dL Total Bilirubin 2.4 H (0.2-1.3) mg/dL AST 275 H (14-36) U/L ALT 318 H (4-34) U/L Alkaline Phosphatase (38-126) U/L Lactate Dehydrogenase (313-618) U/L Lipase 4577 H (23-300) U/L Urine Ketones (Negative) Diabetes panel 06/11/20 06/12/20 06/12/20 Range/Units 18:32 05:41 05:41 Sodium 138 140 (137-145) mmol/L Potassium 4.7 4.7 (3.5-5.1) mmol/L Chloride 105 111 H (98-107) mmol/L Carbon Dioxide 25 27 (22-30) mmol/L BUN 20 H 16 (7-17) mg/dL Creatinine 0.80 0.76 (0.52-1.04) mg/dL Glucose 98 91 (74-99) mg/dL Calcium 9.5 8.3 L (8.4-10.2) mg/dL AST 405 H 275 H (14-36) U/L ALT 356 H 318 H (4-34) U/L Alkaline Phosphatase 447 H (38-126) U/L Total Protein 6.8 (6.3-8.2) g/dL Albumin 3.9 (3.5-5.0) g/dL Calcium panel 06/11/20 06/12/20 Range/Units 18:32 05:41 Calcium 9.5 8.3 L (8.4-10.2) mg/dL Albumin 3.9 (3.5-5.0) g/dL Pituitary panel 06/11/20 06/12/20 Range/Units 18:32 05:41 Sodium 138 140 (137-145) mmol/L Potassium 4.7 4.7 (3.5-5.1) mmol/L Chloride 105 111 H (98-107) mmol/L Carbon Dioxide 25 27 (22-30) mmol/L BUN 20 H 16 (7-17) mg/dL Creatinine 0.80 0.76 (0.52-1.04) mg/dL Glucose 98 91 (74-99) mg/dL Calcium 9.5 8.3 L (8.4-10.2) mg/dL Adrenal panel 06/11/20 06/12/20 06/12/20 Range/Units 18:32 05:41 05:41 Sodium 138 140 (137-145) mmol/L Potassium 4.7 4.7 (3.5-5.1) mmol/L Chloride 105 111 H (98-107) mmol/L Carbon Dioxide 25 27 (22-30) mmol/L BUN 20 H 16 (7-17) mg/dL Creatinine 0.80 0.76 (0.52-1.04) mg/dL Glucose 98 91 (74-99) mg/dL Calcium 9.5 8.3 L (8.4-10.2) mg/dL Total Bilirubin 1.8 H 2.4 H (0.2-1.3) mg/dL AST 405 H 275 H (14-36) U/L ALT 356 H 318 H (4-34) U/L Alkaline Phosphatase 447 H (38-126) U/L Total Protein 6.8 (6.3-8.2) g/dL Albumin 3.9 (3.5-5.0) g/dL Assessment and Plan Plan: 60-year-old female with acute pancreatitis and concern for cholecystitis - Based on clinical picture and workup, there is significant concern for biliary etiology to pancreatitis with hyperbilirubinemia and transaminitis. Bilirubin levels have increased from yesterday to today. There is also notable dilation of the common bile duct found on imaging. At this point, I would recommend continuing treatment per pancreatitis with IV fluid resuscitation and continue antibiotics for concern for cholecystitis. GI evaluation is pending. I will defer to GI opinion on any required intervention based on biliary findings. Patient will likely require surgical intervention with cholecystectomy, however this will need to be timed based on patient's resolution of pancreatitis along with any GI intervention. Continue the patient as nothing by mouth.
[2020-06-12] MEDS: PANTOPRAZOLE 40 MG/10 ML VIAL IVP SCH (09:34)
[2020-06-12 10:18] VITALS: BMI 25.0
[2020-06-12] MEDS: KETOROLAC 15 MG/ML 1 ML VIAL IVP PRN ×2 (11:58→18:41)
[2020-06-12] MEDS: ONDANSETRON 4 MG/2 ML VIAL IVP PRN ×2 (12:24→18:38)
[2020-06-12] MEDS: MORPHINE SULFATE 4 MG/ML SYRINGE IVP PRN ×3 (14:49→23:04)
[2020-06-12] MEDS: PROCHLORPERAZINE 5 MG TAB PO PRN ×2 (14:50→23:14)
[2020-06-12] MEDS ORDERED: METOCLOPRAMIDE 5 MG/ML 2 ML VIAL IVP STA (16:00)
[2020-06-12] MEDS: diphenhydrAMINE 25 MG CAP PO PRN ×2 (16:18→23:14)
--- NOTE | 2020-06-12 23:02 | P.CONS ---
History of Present Illness - Reason for Consult Consult date: 06/12/20 Abdominal pain, elevated bilirubin Requesting physician: Akash Patel - Chief Complaint Abdominal pain - History of Present Illness 60-year-old female with multiple medical comorbidities including chronic back pain, reported history of peptic ulcer disease diagnosed at outside facilityinal pain. The patient reported pain described as sharp and severe in her epigastric region of her aen in the right upper quadrant of her abdomen with radiation into the back. Patient reports a long-standing history of abdominal pain and reports that she was previously diagnosed with peptic ulcer disease on EGD at outside facility. She also reports a history of GERD. Patient was found to have elevation in her lipase at greater than 20,000 on presentation currently [id number] and admitted with gallstone pancreatitis. Computed tomography scan of the abshowed inflammatory changes of the pancreas with ultrasound significant for distended gallbladder with a dilated common bile duct. Currently she is reporting that her abdominal pain is overall improved but still present. Liver enzymes significant for a total bilirubin 2.4, alkaline phosphatase 447, AST 225 and ALT 318. Review of Systems REVIEW OF SYSTEMS: CONSTITUTIONAL: Denies any weight change or fatigue, but she does report fevers prior to presentation. CARDIOVASCULAR: Denies any chest pain, palpitations high or low blood pressures RESPIRATORY: Denies any shortness of breath, hemoptysis or cough. GENITOURINARY: No dysuria or hematuria. MUSCULOSKELETAL: No weakness reported. SKIN: Denies any new rashes or lesions, jaundice or pallor. PSYCHIATRIC: Denies any depression or anxiety. NEUROLOGY: Denies headache, denies any new focal deficits. EARS/NOSE/THROAT: No recent hearing change, congestion, nasal discharge or sore throat. EYES: No pain in eyes, discharge or change in vision. GASTROINTESTINAL: As per HPI. Past Medical History Additional Past Medical History / Comment(s): back pain, PUD, History of Any Multi-Drug Resistant Organisms: None Reported Past Surgical History: Section, Orthopedic Surgery Additional Past Surgical History / Comment(s): knee replacement x 2, ankle surgery, neck surgery Past Anesthesia/Blood Transfusion Reactions: No Reported Reaction Past Psychological History: Anxiety Smoking Status: Former smoker Past Alcohol Use History: Occasional Past Drug Use History: None Reported Additional Drug Use History / Comment(s): patient states she used to smoke cigarettes occasionally when drinking alcohol, no longer smokes. - Past Family History Father Family Medical History: Coronary Artery Disease (CAD) Mother Family Medical History: No Reported History Medications and Allergies Home Medications Medication Instructions Recorded Confirmed Type ALPRAZolam [Xanax] 1 mg PO Q12H PRN 10/13/19 06/11/20 History tiZANidine [Zanaflex] 4 mg PO Q12H PRN 10/13/19 06/11/20 History traMADol HCL 50 mg PO Q6H PRN 10/13/19 06/11/20 History Rfbgfja-Gbwh-Vksf [id number] 2 tab PO DAILY PRN 06/11/20 06/11/20 History [Excedrin] Esomeprazole Magnesium [NexIUM] 20 mg PO BID 06/11/20 06/11/20 History Allergies Allergy/AdvReac Type Severity Reaction Status Date / Time hydrocodone [From Vicodin] AdvReac Nausea & Verified 06/11/20 20:47 Vomiting hydromorphone [From Dilaudid] AdvReac Nausea & Verified 06/12/20 12:00 Vomiting Physical Exam Vitals: Vital Signs Temp Pulse Pulse Pulse Resp BP BP 06/12/20 08:15 98.5 F 64 16 121/77 06/12/20 08:00 64 06/12/20 03:18 98.5 F 75 16 06/11/20 22:02 98.9 F 90 18 06/11/20 21:45 100.2 F H 95 20 135/80 06/11/20 20:00 96 18 136/72 06/11/20 17:34 98.6 F 80 16 142/72 BP Pulse Ox 06/12/20 08:15 100 06/12/20 08:00 06/12/20 03:18 107/69 95 06/11/20 22:02 139/78 100 06/11/20 21:45 100 06/11/20 20:00 99 06/11/20 17:34 100 Intake and Output 06/11/20 06/12/20 06/12/20 22:59 06:59 14:59 Intake Total 1700 Output Total 375 350 Balance -375 1350 Intake: Intake, IV Titration 1700 Amount Piperacillin-Tazobactam 3 100 .375 gm In Sodium Chloride 0.9% 100 ml @ 200 mls/hr IVPB ONCE STA Rx#:[id number] Sodium Chloride 0.9% 1, 1600 000 ml @ 200 mls/hr IV . Q5H [facility] Rx#:[id number] Output: Urine 375 350 Other: Voiding Method Toilet # Voids 1 1 Weight 70.5 kg 70.5 kg On physical examination, patient appears comfortable in no apparent distress. HEAD: Normocephalic, atraumatic. EYES: No scleral icterus. No conjunctival injection. MOUTH: No lesions, tongue midline. NECK: Trachea midline, no gross abnormalities. CHEST: Clear to auscultation with no wheezing or rhonchi appreciated. HEART: Regular rate and rhythm. ABDOMEN: Soft, moderately tender to palpation. Bowel sounds are positive. No organomegaly. No guarding or rigidity. EXTREMITIES: No pedal edema. SKIN: No rashes, no jaundice. NEUROLOGIC: Alert and oriented x3. No focal deficits. Results CBC & Chem 7: 06/12/20 05:41 06/12/20 05:41 Labs: Abnormal Lab Results - Last 24 Hours (Table) 06/11/20 06/11/20 06/11/20 Range/Units 18:32 18:32 18:32 WBC 12.4 H (3.8-10.6) k/uL RBC (3.80-5.40) m/uL Hgb (11.4-16.0) gm/dL Neutrophils # 10.1 H (1.3-7.7) k/uL Lymphocytes # (1.0-4.8) k/uL APTT 18.6 L (22.0-30.0) sec Chloride (98-107) mmol/L BUN (7-17) mg/dL Calcium (8.4-10.2) mg/dL Total Bilirubin (0.2-1.3) mg/dL AST (14-36) U/L ALT (4-34) U/L Alkaline Phosphatase (38-126) U/L Lactate Dehydrogenase (313-618) U/L Lipase (23-300) U/L Urine Ketones Trace H (Negative) 06/11/20 06/11/20 06/12/20 Range/Units 18:32 23:30 05:41 WBC (3.8-10.6) k/uL RBC 3.78 L (3.80-5.40) m/uL Hgb 11.3 L (11.4-16.0) gm/dL Neutrophils # (1.3-7.7) k/uL Lymphocytes # 0.7 L (1.0-4.8) k/uL APTT (22.0-30.0) sec Chloride (98-107) mmol/L BUN 20 H (7-17) mg/dL Calcium (8.4-10.2) mg/dL Total Bilirubin 1.8 H (0.2-1.3) mg/dL AST 405 H (14-36) U/L ALT 356 H (4-34) U/L Alkaline Phosphatase 447 H (38-126) U/L Lactate Dehydrogenase 822 H (313-618) U/L Lipase >71050 H (23-300) U/L Urine Ketones (Negative) 06/12/20 06/12/20 Range/Units 05:41 05:41 WBC (3.8-10.6) k/uL RBC (3.80-5.40) m/uL Hgb (11.4-16.0) gm/dL Neutrophils # (1.3-7.7) k/uL Lymphocytes # (1.0-4.8) k/uL APTT (22.0-30.0) sec Chloride 111 H (98-107) mmol/L BUN (7-17) mg/dL Calcium 8.3 L (8.4-10.2) mg/dL Total Bilirubin 2.4 H (0.2-1.3) mg/dL AST 275 H (14-36) U/L ALT 318 H (4-34) U/L Alkaline Phosphatase (38-126) U/L Lactate Dehydrogenase (313-618) U/L Lipase 4577 H (23-300) U/L Urine Ketones (Negative) CT scan - abdomen: report reviewed (computed tomography scan of the abdomen with inflammation of the pancreas dilated bile ducts and gallbladder wall thickening. ) Assessment and Plan (1) Acute pancreatitis Narrative/Plan: 60-year-old female presents to the hospital with complaints of abdominal pain found to have findings of pancreatitis on a computed tomography scan of the abdomen with dilated bile ducts and, or wall thickening. Currently being treated for gallstone pancreatitis. Patient had elevation of liver enzymes with total bilirubin 2.4, aphatase 447, AST 275 andALT of 318 . Unclear if this is secondary to a gallstone which is passed through the bile ducts, choledocholithiasis, cholecystitis or oher etiology. Current Visit: Yes Status: Acute Code(s): K85.90 - ACUTE PANCREATITIS WITHOUT NECROSIS OR INFECTION, UNSP SNOMED Code(s): 740854621 (2) Abdominal pain Current Visit: Yes Status: Acute Code(s): R10.9 - UNSPECIFIED ABDOMINAL PAIN SNOMED Code(s): 49917401 (3) Nausea and vomiting Current Visit: Yes Status: Acute Code(s): R11.2 - NAUSEA WITH VOMITING, UNS PECIFIED SNOMED Code(s): 44151737 (4) Transaminitis Current Visit: Yes Status: Acute Code(s): R74.0 - NONSPEC ELEV OF LEVELS OF TRANSAMNS & LACTIC ACID DEHYDRGNSE SNOMED Code(s): 095109051 Plan: supportive care nothing by mouth Surgical service consult that Continue IV fluid hydration Continue pain control MRCP pending to rule out choledocholithiasis, ERCP contingent on findings from MRCP Continue broad-spectrum antibiotic therapy Thank you for allowinge care of the patient
[2020-06-13] MEDS: SODIUM CHLORIDE 0.9% 1,000 ML IV SCH ×2 (01:58→07:18)
[2020-06-13] MEDS: ONDANSETRON 4 MG/2 ML VIAL IVP PRN ×2 (04:22→09:43)
[2020-06-13] MEDS: KETOROLAC 15 MG/ML 1 ML VIAL IVP PRN ×2 (04:23→20:59)
[2020-06-13 05:38] LABS: HCT 35.6 % (34.0-46.0); HGB 11.3 gm/dL (11.4-16.0); Hypochromasia Moderate; MCH 31.2 pg (25.0-35.0); MCHC 31.6 g/dL (31.0-37.0); MCV 98.7 fL (80.0-100.0); Mean Platelet Volume 8.8; Platelet Count 147 k/uL (150-450); RBC 3.61 m/uL (3.80-5.40); WBC 3.6 k/uL (3.8-10.6)
[2020-06-13 05:50] LABS: ALT 233 U/L (4-34); AST 154 U/L (14-36); African American GFR (CKD) >90 (>60 ml/min/1.73 sqM); Albumin 2.7 g/dL (3.5-5.0); Alkaline Phosphatase 359 U/L (38-126); Anion Gap 7 mmol/L; Bilirubin, Conjugated 1.3 mg/dL (0.0-0.3); Bilirubin, Delta 1.5 mg/dL (0.0-0.2); Bilirubin,Unconjugated 0.3 mg/dL (0.0-1.1); Blood Urea Nitrogen 14 mg/dL (7-17); Calcium 8.2 mg/dL (8.4-10.2); Carbon Dioxide 16 mmol/L (22-30); Chloride 113 mmol/L (98-107); Glucose 53 mg/dL (74-99); Magnesium 1.8 mg/dL (1.6-2.3); Non-African American GFR(CKD) >90 (>60 ml/min/1.73 sqM); Potassium 4.5 mmol/L (3.5-5.1); Sodium 136 mmol/L (137-145); Total Bilirubin 3.1 mg/dL (0.2-1.3); Total Protein 5.2 g/dL (6.3-8.2)
[2020-06-13 06:54] LABS: Glucose,Whole Blood 55 mg/dL (75-99)
[2020-06-13] MEDS ORDERED: DEXTROSE 50% SYRINGE 50 ML IVP ONE (06:55)
[2020-06-13 07:15] LABS: Glucose,Whole Blood 116 mg/dL (75-99)
[2020-06-13] MEDS: PIPERACILLIN-TAZOBACTAM 3.375 GM in SODIUM CHLORIDE 0.9% 100 ML IVPB SCH ×3 (07:18→23:50)
[2020-06-13 08:10] LABS: Glucose,Whole Blood 75 mg/dL (75-99)
[2020-06-13] MEDS: PANTOPRAZOLE 40 MG/10 ML VIAL IVP SCH (08:12)
[2020-06-13] MEDS: HEPARIN SODIUM,PORCINE 5,000 UNIT/ML 1 ML VIAL SQ SCH ×3 (08:12→23:50)
[2020-06-13] MEDS: DEXTROSE 5%-0.45% NACL 1,000 ML IV SCH ×2 (08:12→18:11)
--- NOTE | 2020-06-13 08:18 | P.PN ---
Subjective Progress Note Date: 06/13/20 Patient seen and examined at bedside. States she is feeling better. No nausea or vomiting. Objective - Vital Signs Vital signs: Vital Signs Temp 98.1 F 06/13/20 08:01 Pulse 75 06/13/20 08:01 Resp 18 06/13/20 08:01 BP 118/79 06/13/20 08:01 Pulse Ox 97 06/13/20 08:01 Intake & Output 06/12/20 06/13/20 06/13/20 18:59 06:59 18:59 Intake Total 60 2100 Output Total 325 800 Balance -265 1300 Weight 70.5 kg Intake: Intake, IV Titration 2100 Amount Piperacillin-Tazobactam 3 100 .375 gm In Sodium Chloride 0.9% 100 ml @ 25 mls/hr IVPB Q8H [facility] Rx#: [id number] Sodium Chloride 0.9% 1, 2000 000 ml @ 200 mls/hr IV . Q5H [facility] Rx#:[id number] Oral 60 Output: Urine 325 800 Other: Voiding Method Toilet Toilet # Voids 1 1 - Constitutional General appearance: Present: cooperative, no acute distress - Respiratory Details: No difficulty with respiration - Gastrointestinal Gastrointestinal Comment(s): Soft, mild abdominal tenderness, nondistended, no rebound, no guarding - Musculoskeletal Musculoskeletal: Present: generalized weakness - Psychiatric Psychiatric: Present: A&O x's 3 - Labs CBC & Chem 7: 06/13/20 05:28 06/13/20 05:28 Labs: Abnormal Lab Results - Last 24 Hours (Table) 06/12/20 06/13/20 06/13/20 Range/Units 05:41 05:28 05:28 WBC 3.6 L (3.8-10.6) k/uL RBC 3.61 L (3.80-5.40) m/uL Hgb 11.3 L (11.4-16.0) gm/dL Plt Count 147 L (150-450) k/uL Sodium 136 L (137-145) mmol/L Chloride 113 H (98-107) mmol/L Carbon Dioxide 16 L (22-30) mmol/L Glucose 53 L (74-99) mg/dL POC Glucose (mg/dL) (75-99) mg/dL Calcium 8.2 L (8.4-10.2) mg/dL Total Bilirubin 2.4 H 3.1 H (0.2-1.3) mg/dL Conjugated Bilirubin 1.3 H (0.0-0.3) mg/dL Delta Bilirubin 1.5 H (0.0-0.2) mg/dL AST 275 H 154 H (14-36) U/L ALT 318 H 233 H (4-34) U/L Alkaline Phosphatase 359 H (38-126) U/L Total Protein 5.2 L (6.3-8.2) g/dL Albumin 2.7 L (3.5-5.0) g/dL 06/13/20 06/13/20 Range/Units 06:53 07:11 WBC (3.8-10.6) k/uL RBC (3.80-5.40) m/uL Hgb (11.4-16.0) gm/dL Plt Count (150-450) k/uL Sodium (137-145) mmol/L Chloride (98-107) mmol/L Carbon Dioxide (22-30) mmol/L Glucose (74-99) mg/dL POC Glucose (mg/dL) 55 L 116 H (75-99) mg/dL Calcium (8.4-10.2) mg/dL Total Bilirubin (0.2-1.3) mg/dL Conjugated Bilirubin (0.0-0.3) mg/dL Delta Bilirubin (0.0-0.2) mg/dL AST (14-36) U/L ALT (4-34) U/L Alkaline Phosphatase (38-126) U/L Total Protein (6.3-8.2) g/dL Albumin (3.5-5.0) g/dL Assessment and Plan Plan: 60-year-old female with acute pancreatitis and concern for cholecystitis - Patient is progressing and stating that she is feeling better. GI did angella luate the patient and MRCP is pending today. Total bilirubin is 3.1 today, elevated from yesterday. We'll follow with MRCP results. Surgical planning will be based on GI treatment recommendations after MRCP.
[2020-06-13 10:09] LABS: Glucose,Whole Blood 98 mg/dL (75-99)
[2020-06-13] MEDS: MORPHINE SULFATE 4 MG/ML SYRINGE IVP PRN (11:40)
--- NOTE | 2020-06-13 13:07 | P.PN ---
Subjective Progress Note Date: 06/13/20 Principal diagnosis: Abdominal pain Patient was seen and examined at the bedside. Patient just underwent her MRCP, results are pending. Patient states she has continuous nausea, however no vomiting. She states pain has been tolerable and is somewhat improved. Today total bili 3.1, alkaline phosphatase 359, AST 154, ALP 233. Patient is tentatively scheduled for ERCP today based on findings from MRCP. Objective - Vital Signs Vital signs: Vital Signs Temp 98.1 F 06/13/20 12:37 Pulse 67 06/13/20 12:37 Resp 18 06/13/20 12:37 BP 132/76 06/13/20 12:37 Pulse Ox 100 06/13/20 12:37 Intake & Output 06/12/20 06/13/20 06/13/20 18:59 06:59 18:59 Intake Total 60 2100 Output Total 325 800 400 Balance -265 1300 -400 Weight 70.5 kg Intake: Intake, IV Titration 2100 Amount Piperacillin-Tazobactam 3 100 .375 gm In Sodium Chloride 0.9% 100 ml @ 25 mls/hr IVPB Q8H [facility] Rx#: [id number] Sodium Chloride 0.9% 1, 2000 000 ml @ 200 mls/hr IV . Q5H [facility] Rx#:[id number] Oral 60 Output: Urine 325 800 400 Other: Voiding Method Toilet Toilet Toilet # Voids 1 1 - Exam General appearance: The patient is alert, oriented, in no acute distress. HET: Head is normocephalic and atraumatic. Sclera non-icteric. Neck: Supple Heart: S1 S2. Regular rate and rhythm. Lungs: No crackles or wheezes are heard. Abdomen: Soft, tender to palpation in epigastric and left upper quadrant region, nondistended with bowel sounds. No rigidity or guarding. Extremities: Normal skin color and turgor. No edema bilaterally. Neurological: No focal deficits. - Labs CBC & Chem 7: 06/13/20 05:28 06/13/20 05:28 Labs: Abnormal Lab Results - Last 24 Hours (Table) 06/13/20 06/13/20 06/13/20 Range/Units 05:28 05:28 05:28 WBC 3.6 L (3.8-10.6) k/uL RBC 3.61 L (3.80-5.40) m/uL Hgb 11.3 L (11.4-16.0) gm/dL Plt Count 147 L (150-450) k/uL Sodium 136 L (137-145) mmol/L Chloride 113 H (98-107) mmol/L Carbon Dioxide 16 L (22-30) mmol/L Glucose 53 L (74-99) mg/dL POC Glucose (mg/dL) (75-99) mg/dL Calcium 8.2 L (8.4-10.2) mg/dL Total Bilirubin 3.1 H (0.2-1.3) mg/dL Conjugated Bilirubin 1.3 H (0.0-0.3) mg/dL Delta Bilirubin 1.5 H (0.0-0.2) mg/dL AST 154 H (14-36) U/L ALT 233 H (4-34) U/L Alkaline Phosphatase 359 H (38-126) U/L Total Protein 5.2 L (6.3-8.2) g/dL Albumin 2.7 L (3.5-5.0) g/dL Lipase 2102 H (23-300) U/L 06/13/20 06/13/20 Range/Units 06:53 07:11 WBC (3.8-10.6) k/uL RBC (3.80-5.40) m/uL Hgb (11.4-16.0) gm/dL Plt Count (150-450) k/uL Sodium (137-145) mmol/L Chloride (98-107) mmol/L Carbon Dioxide (22-30) mmol/L Glucose (74-99) mg/dL POC Glucose (mg/dL) 55 L 116 H (75-99) mg/dL Calcium (8.4-10.2) mg/dL Total Bilirubin (0.2-1.3) mg/dL Conjugated Bilirubin (0.0-0.3) mg/dL Delta Bilirubin (0.0-0.2) mg/dL AST (14-36) U/L ALT (4-34) U/L Alkaline Phosphatase (38-126) U/L Total Protein (6.3-8.2) g/dL Albumin (3.5-5.0) g/dL Lipase (23-300) U/L Assessment and Plan Assessment: (1) Acute pancreatitis Narrative/Plan: 60-year-old female presents to the hospital with complaints of abdominal pain found to have findings of pancreatitis on a computed tomography scan of the abdomen with dilated bile ducts and, or wall thickening. Currently being treated for gallstone pancreatitis. Patient had elevation of liver enzymes with total bilirubin 2.4, aphatase 447, AST 275 andALT of 318. Total Bili increased today to 3.1, alkaline phosphatase 359, AST 154, a L2 to 33. Unclear if this is secondary to a gallstone which is passed through the bile ducts, choledocholithiasis, cholecystitis or oher etiology. Current Visit: Yes Status: Acute Code(s): K85.90 - ACUTE PANCREATITIS WITHOUT NECROSIS OR INFECTION, UNSP SNOMED Code(s): 847355896 (2) Abdominal pain Current Visit: Yes Status: Acute Code(s): R10.9 - UNSPECIFIED ABDOMINAL PAIN SNOMED Code(s): 06474965 (3) Nausea and vomiting Current Visit: Yes Status: Acute Code(s): R11.2 - NAUSEA WITH VOMITING, UNSPECIFIED SNOMED Code(s): 35609768 (4) Transaminitis Current Visit: Yes Status: Acute Code(s): R74.0 - NONSPEC ELEV OF LEVELS OF TRANSAMNS & LACTIC ACID DEHYDRGNSE SNOMED Code(s): 044331434 Plan: supportive care nothing by mouth Surgical service consult Continue IV fluid hydration Continue pain control MRCP completed pending results to rule out choledocholithiasis, ERCP contingent on findings from MRCP Continue broad-spectrum antibiotic therapy Thank you for allowing us to participate in the plan of care of your patient The impression and plan of care has been dictated as directed. Dr. Angely Jarrell I performed a history and examination of this patient, discussed the same with the dictator. I agree with the dictator's note ,documented as a scribe. Any additional findings or plans will be noted.
--- NOTE | 2020-06-13 13:44 | MR ---
MRCP HISTORY: Abdominal pain, biliary ductal dilatation, abnormal CT Multiplanar multisequence imaging obtained through the abdomen with three-dimensional reconstructions performed through the biliary system. FINDINGS: There is motion on the exam. There are small bilateral pleural effusions that is developed in the interval. There is associated at electasis. Biliary ductal dilatation persists, the gallbladder is dilated, hydropic. Small dependent increased a ttenuation within the gallbladder seen on CT corresponds to small focal areas of low signal on MRI co nsistent with cholelithiasis. There is pericholecystic fluid suspected which may develop in the inter brendon. Pancreatic duct shows a similar appearance. Axial image 25 to the T2 data set shows a focal area of low signal suggesting choledocholithiasis. Similar appearance present on axial image 22 possible 23, not well correlated on coronal or post process images. The abnormal soft tissue seen at the level of the distal common bile duct on coronal images #36 and 37, axial image #40 [address] scan i s not as well seen, suggestion of the distal filling defect seen on axial image 11 of the T2 data set . Shaggy appearance of the pancreas may be indicative of pancreatitis. Cortical cyst noted at the upper pole the left kidney. No retroperitoneal adenopathy. Aorta shows nor mal caliber. Spleen is unremarkable. IMPRESSION: Correlate for cholecystitis, pancreatitis, findings suggest cholelithiasis, choledocholit hiasis as described. Abnormal soft tissue is seen on the CT scan as described at the level of the dis salena common bile duct but not well correlated on patient's MRCP. Interval development of small pleural effusions.
[2020-06-13] MEDS ORDERED: INDOMETHACIN 50MG SUPPOSITORY RECTAL ONE (14:00)
[2020-06-13] MEDS ORDERED: IV FLUID CONTINUATION 800 ML IV ONE (14:16)
[2020-06-13] MEDS ORDERED: IOPAMIDOL-300 50ML BTL MISCELLANE ONE (14:43)
--- NOTE | 2020-06-13 15:21 | P.PCN ---
Date of Procedure: 06/13/20 Procedure(s) Performed: Brief history: Patient is a 60 year-old pleasant lady scheduled for an ERCP as part of evaluation of abdominal pain/acute gallstone pancreatitis with elevated bilirubin and elevated serum transaminases for the last 2 days' duration. She had an MRCP done this morning that showed filling defects in the common bile duct suggestive of CBD stones. Procedure performed: ERCP with biliary sphincterotomy and balloon stone extraction Preoperative diagnoses: Acute gallstone pancreatitis/elevated LFTs and jaundice IV sedation per anesthesia: Procedure: After informed consent was obtained from the patient and after the risks benefits and complications including bleeding perforation and pancreatitis explained in detail the patient was brought into the endoscopy unit. The patient was placed in prone position and IV conscious sedation was administered by anesthesia under continuous monitoring. The Olympus side-viewing duodenoscope was then inserted into the mouth and esophagus intubated without any difficulty. The scope was gradually advanced into the stomach and duodenum. There was a large periampullary diverticulum noted. The major papilla was identified with some difficulty as it was located in the diverticulum itself. Using the tapered-tip catheter the common bile duct was cannulated using a guidewire technique and upon injection of the dye the common bile duct appeared dilated measuring at least 1.5 cm in diameter. A small filling defect noted in the distal common bile duct. At this time the catheter was exchanged over a guidewire with a biliary sphincterotome and a biliary sphincterotomy was performed at 12 o'clock position and was extended to 1 cm in length. Following this 11.5 mm balloon was passed over the guidewire into the proximal CBD, gently inflated and withdrawn. Small stone was seen exiting the ampulla. This maneuver was repeated several times and an occlusion cholangiogram was performed and no other stones were seen exiting the ampulla. The pancreatic duct was intentionally not cannulated during the procedure. The patient tolerated the procedure well. Impression: Dilated common bile duct measuring 1.5 cm in diameter with a small filling defect status post biliary sphincterotomy and balloon stone extraction as described above Large periampullary diverticulum Pancreatic duct intentionally not cannulated Recommendations: The findings of this examination were discussed with the patient as well as a family. She'll be started on a clear liquid diet today. Monitor labs closely. Continue with antibiotics.
--- NOTE | 2020-06-13 16:26 | FL ---
EXAMINATION TYPE: FL ERCP biliary duct only DATE OF EXAM: 06/13/2020 COMPARISON: NONE HISTORY: Choledocholithiasis Fluoroscopy support supplied to the referring clinician. See dictated report from urology, 2 minutes 52 seconds fluoroscopy time, single intraoperative image documents the procedure
--- NOTE | 2020-06-13 21:08 | P.PN ---
Subjective Progress Note Date: 06/13/20 (delayed charting seen at 1205) Principal diagnosis: belly pain Patient is a 60-year-old female with chronic back and neck pain, peptic ulcer disease, prior tobacco abuse who presented to the hospital with complaints of abdominal pain. In the ER she underwent an extensive evaluation. On arrival her vital signs were within normal limits. She did reach a T-max of 100.2 on the ER. Initial laboratory analysis showed white blood cell count 12.4, total bilirubin 1.8, AST 405, ALT 356 alkaline phosphatase 447, lipase greater than 20,000, LDH 822, urinalysis is negative. She underwent a CT abdomen and pelvis which demonstrated inflammatory changes adjacent to the body of the pancreas with no pseudocyst or abscess formation. Also noted a distended gallbladder with very prominent common bile duct and some hepatic duct dilatation. She subsequently underwent a gallbladder ultrasound which showed a distended gallbladder with dilated common bile duct and a positive Mortensen sign. She was started on IV fluids, pain control, antiemetics, Rocephin, and Flagyl. She was admitted for further monitoring. GI and general surgery were consulted. MRCP demonstrated choledocholithiasis. Patient was then taken for ERCP on 06/13 and had a biliary sphincterotomy with balloon stone extraction. Patient seen and examined at bedside. With that her pain is better and back to her typical abdominal pain. She is still having some nausea but is improved from yesterday. She denies any chest pain or shortness of breath. Complains of urinating continuously. She states that she has not an ERCP today she had just wanted to go home. She is aware she'll need her gallbladder taken out at a later date. General: Nontoxic no distress appears at stated age Derm: warm, dry Head: atraumatic, normocephalic, symmetric Eyes: EOMI, no lid lag, anicteric sclera Mouth: no lip lesion, mucus membranes moist Cardiovascular: S1S2 reg, no murmur, positive posterior tibial pulse bilateral, Lungs: CTA bilateral, no rhonchi, no rales , no accessory muscle use Abdominal: soft, nontender to palpation, no guarding, no appreciable organomegaly Ext: no gross muscle atrophy, no edema, no contractures Neuro: CN II-XI grossly intact, no focal neuro deficits Psych: Alert, oriented, appropriate affect Acute cholecystitis with acute pancreatitis secondary to choledocholithiasis, with sepsis -IV fluids decreased -Nothing by mouth -Pain control -Antiemetics -Rocephin and Flagyl -GI recommendations appreciated: Patient with her MRCP 06/13 followed by ERCP with stone removal. - Surgery recommendations appreciated: Likely will need gallbladder out at a later date. I discussed term in timing. Transaminitis secondary to above -Supportive care -Follow liver enzymes Chronic pain due to Arthritis -Continue with Toradol -Supportive care Hypoglycemia -Fluids transition to D5 half-normal saline -Follow blood sugars DVT prophylaxis: Heparin Discussed with: Patient, nursing Anticipated discharge:2-[address]: Home A total of 35 minutes was spent on the care of this complex patient more than 50% of the time was spent in counseling and care coordination. Objective - Vital Signs Vital signs: Vital Signs Temp 97.0 F L 06/13/20 16:00 Pulse 51 L 06/13/20 16:30 Resp 18 06/13/20 16:30 BP 126/85 06/13/20 16:30 Pulse Ox 93 L 06/13/20 16:30 Intake & Output 06/13/20 06/13/20 06/14/20 06:59 18:59 06:59 Intake Total 2100 660 Output Total 800 400 Balance 1300 260 Intake: IV 600 Intake, IV Titration 2100 Amount Piperacillin-Tazobactam 3 100 .375 gm In Sodium Chloride 0.9% 100 ml @ 25 mls/hr IVPB Q8H [facility] Rx#: [id number] Sodium Chloride 0.9% 1, 2000 000 ml @ 200 mls/hr IV . Q5H [facility] Rx#:[id number] Oral 60 Output: Urine 800 400 Other: Voiding Method Toilet Toilet # Voids 1 - Labs CBC & Chem 7: 06/13/20 05:28 06/13/20 05:28 Labs: Abnormal Lab Results - Last 24 Hours (Table) 06/13/20 06/13/20 06/13/20 Range/Units 05:28 05:28 05:28 WBC 3.6 L (3.8-10.6) k/uL RBC 3.61 L (3.80-5.40) m/uL Hgb 11.3 L (11.4-16.0) gm/dL Plt Count 147 L (150-450) k/uL Sodium 136 L (137-145) mmol/L Chloride 113 H (98-107) mmol/L Carbon Dioxide 16 L (22-30) mmol/L Glucose 53 L (74-99) mg/dL POC Glucose (mg/dL) (75-99) mg/dL Calcium 8.2 L (8.4-10.2) mg/dL Total Bilirubin 3.1 H (0.2-1.3) mg/dL Conjugated Bilirubin 1.3 H (0.0-0.3) mg/dL Delta Bilirubin 1.5 H (0.0-0.2) mg/dL AST 154 H (14-36) U/L ALT 233 H (4-34) U/L Alkaline Phosphatase 359 H (38-126) U/L Total Protein 5.2 L (6.3-8.2) g/dL Albumin 2.7 L (3.5-5.0) g/dL Lipase 2102 H (23-300) U/L 06/13/20 06/13/20 Range/Units 06:53 07:11 WBC (3.8-10.6) k/uL RBC (3.80-5.40) m/uL Hgb (11.4-16.0) gm/dL Plt Count (150-450) k/uL Sodium (137-145) mmol/L Chloride (98-107) mmol/L Carbon Dioxide (22-30) mmol/L Glucose (74-99) mg/dL POC Glucose (mg/dL) 55 L 116 H (75-99) mg/dL Calcium (8.4-10.2) mg/dL Total Bilirubin (0.2-1.3) mg/dL Conjugated Bilirubin (0.0-0.3) mg/dL Delta Bilirubin (0.0-0.2) mg/dL AST (14-36) U/L ALT (4-34) U/L Alkaline Phosphatase (38-126) U/L Total Protein (6.3-8.2) g/dL Albumin (3.5-5.0) g/dL Lipase (23-300) U/L
[2020-06-13] MEDS: ALPRAZolam 1 MG TAB PO PRN (23:50)
[2020-06-14] MEDS: KETOROLAC 15 MG/ML 1 ML VIAL IVP PRN ×3 (03:50→15:53)
[2020-06-14] MEDS: PIPERACILLIN-TAZOBACTAM 3.375 GM in SODIUM CHLORIDE 0.9% 100 ML IVPB SCH ×3 (06:52→23:06)
[2020-06-14] MEDS: DEXTROSE 5%-0.45% NACL 1,000 ML IV SCH ×2 (06:53→19:13)
[2020-06-14 07:25] LABS: Basophils % (A) 1 %; Eosinophils # (A) 0.2 k/uL (0-0.7); Eosinophils % (A) 5 %; HCT 34.1 % (34.0-46.0); HGB 10.9 gm/dL (11.4-16.0); Lymphocytes % (A) 37 %; MCH 30.8 pg (25.0-35.0); MCHC 31.8 g/dL (31.0-37.0); MCV 96.8 fL (80.0-100.0); Mean Platelet Volume 8.8; Monocytes # (A) 0.2 k/uL (0-1.0); Monocytes % (A) 7 %; Neutrophils # (A) 1.4 k/uL (1.3-7.7); Neutrophils % (A) 48 %; Platelet Count 149 k/uL (150-450); RBC 3.53 m/uL (3.80-5.40); RDW 13.3 % (11.5-15.5); WBC 2.8 k/uL (3.8-10.6)
[2020-06-14 07:41] LABS: ALT 216 U/L (4-34); AST 112 U/L (14-36); African American GFR (CKD) >90 (>60 ml/min/1.73 sqM); Albumin 2.7 g/dL (3.5-5.0); Alkaline Phosphatase 342 U/L (38-126); Amylase 66 U/L (30-110); Anion Gap 4 mmol/L; Blood Urea Nitrogen 7 mg/dL (7-17); Calcium 8.2 mg/dL (8.4-10.2); Carbon Dioxide 24 mmol/L (22-30); Chloride 110 mmol/L (98-107); Glucose 105 mg/dL (74-99); Non-African American GFR(CKD) >90 (>60 ml/min/1.73 sqM); Potassium 3.9 mmol/L (3.5-5.1); Sodium 138 mmol/L (137-145); Total Bilirubin 1.3 mg/dL (0.2-1.3); Total Protein 5.2 g/dL (6.3-8.2)
[2020-06-14] MEDS: HEPARIN SODIUM,PORCINE 5,000 UNIT/ML 1 ML VIAL SQ SCH ×3 (08:15→23:06)
[2020-06-14] MEDS: PANTOPRAZOLE 40 MG/10 ML VIAL IVP SCH (08:17)
[2020-06-14] MEDS ORDERED: tiZANidine 4 MG TAB PO PRN (09:31)
[2020-06-14] MEDS ORDERED: traMADol 50 MG TAB PO PRN (11:08)
--- NOTE | 2020-06-14 11:28 | P.PN ---
Subjective Progress Note Date: 06/14/20 Principal diagnosis: Abdominal pain Patient seen and examined at bedside. Patient was complaining of neck pain and wanted her home medications to be restarted which included tizanidine and tramadol. Patient states that her abdominal pain has resolved. Patient denies nausea, vomiting, fevers, chills, abdominal pain, diarrhea, or constipation. Patient will be scheduled for a cholecystectomy during hospital stay. Lipase levels this morning have improved from 2102 to 348. Liver enzymes are also improving. Patient is a 60-year-old female with chronic back and neck pain, peptic ulcer disease, prior tobacco abuse who presented to the hospital with complaints of abdominal pain. In the ER she underwent an extensive evaluation. On arrival her vital signs were within normal limits. She did reach a T-max of 100.2 on the ER. Initial laboratory analysis showed white blood cell count 12.4, total bilirubin 1.8, AST 405, ALT 356 alkaline phosphatase 447, lipase greater than 20,000, LDH 822, urinalysis is negative. She underwent a CT abdomen and pelvis which demonstrated inflammatory changes adjacent to the body of the pancreas with no pseudocyst or abscess formation. Also noted a distended gallbladder with very prominent common bile duct and some hepatic duct dilatation. She subsequently underwent a gallbladder ultrasound which showed a distended gallbladder with dilated common bile duct and a positive Mortensen sign. She was started on IV fluids, pain control, antiemetics, Rocephin, and Flagyl. She was admitted for further monitoring. GI and general surgery were consulted. MRCP demonstrated choledocholithiasis. Patient was then taken for ERCP on 06/13 and had a biliary sphincterotomy with balloon stone extraction. Objective - Vital Signs Vital signs: Vital Signs Temp 98.1 F 06/14/20 08:05 Pulse 62 06/14/20 08:05 Resp 16 06/14/20 08:05 BP 130/94 06/14/20 08:05 Pulse Ox 95 06/14/20 08:05 Intake & Output 06/13/20 06/14/20 06/14/20 18:59 06:59 18:59 Intake Total 660 Output Total 400 300 Balance 260 -300 Intake: IV 600 Oral 60 Output: Urine 400 300 Other: Voiding Method Toilet Toilet # Voids 1 1 - Exam General: [non toxic], [no distress], [appears at stated age] Derm: [warm], [dry] Head: [atraumatic], [normocephalic], [symmetric] Eyes: [EOMI], [no lid lag], [anicteric sclera] Mouth: [no lip lesion], [mucus membranes moist] Cardiovascular: [S1S2 reg], [no murmur], [positive posterior tibial pulse bilateral], Lungs: [CTA bilateral], [no rhonchi, no rales] , [no accessory muscle use] Abdominal: [soft], [ nontender to palpation], [no guarding], [no appreciable organomegaly] Ext: [no gross muscle atrophy], [no edema], [no contractures] Neuro: [ CN II-XI grossly intact], [no focal neuro deficits] Psych: [Alert], [oriented], [appropriate affect] - Labs CBC & Chem 7: 06/14/20 06:56 06/14/20 06:56 Labs: Abnormal Lab Results - Last 24 Hours (Table) 06/14/20 06/14/20 Range/Units 06:56 06:56 WBC 2.8 L (3.8-10.6) k/uL RBC 3.53 L (3.80-5.40) m/uL Hgb 10.9 L (11.4-16.0) gm/dL Plt Count 149 L (150-450) k/uL Chloride 110 H (98-107) mmol/L Glucose 105 H (74-99) mg/dL Calcium 8.2 L (8.4-10.2) mg/dL AST 112 H (14-36) U/L ALT 216 H (4-34) U/L Alkaline Phosphatase 342 H (38-126) U/L Total Protein 5.2 L (6.3-8.2) g/dL Albumin 2.7 L (3.5-5.0) g/dL Lipase 348 H (23-300) U/L Assessment and Plan Assessment: Acute cholecystitis with acute pancreatitis secondary to choledocholithiasis, with sepsis -IV fluids decreased -Nothing by mouth -Pain control -Antiemetics -Rocephin and Flagyl -GI recommendations appreciated: Patient with her MRCP 06/13 followed by ERCP with stone removal. - Surgery recommendations appreciated: Cholecystectomy scheduled Transaminitis secondary to above improving -Supportive care -Follow liver enzymes Chronic pain due to Arthritis stable -Restart tizanidine and tramadol when necessary -Supportive care Hypoglycemia -Fluids transition to D5 half-normal saline -Follow blood sugars DVT prophylaxis: Heparin Discussed with: Patient, nursing Anticipated discharge:2-[address]: Home A total of 35 minutes was spent on the care of this complex patient more than 50% of the time was spent in counseling and care coordination. Time with Patient: Greater than 30
[2020-06-14] MEDS: ONDANSETRON 4 MG/2 ML VIAL IVP PRN (14:29)
--- NOTE | 2020-06-14 16:37 | P.PN ---
Subjective Progress Note Date: 06/14/20 Principal diagnosis: Abdominal pain Patient was seen and examined at the bedside. She underwent an ERCP yesterday with successful balloon sweep.Patient states pain is gone other than with mild tenderness to palpation. Patient states she does still has some nausea however no vomiting. She has been started on a full liquid diet today. She's had a bowel movement. She is scheduled tomorrow with Dr. Bustillo for cholecystectomy. Objective - Vital Signs Vital signs: Vital Signs Temp 98.1 F 06/14/20 08:05 Pulse 62 06/14/20 08:05 Resp 16 06/14/20 08:05 BP 130/94 06/14/20 08:05 Pulse Ox 95 06/14/20 08:05 Intake & Output 06/13/20 06/14/20 06/14/20 18:59 06:59 18:59 Intake Total 660 Output Total 400 300 Balance 260 -300 Intake: IV 600 Oral 60 Output: Urine 400 300 Other: Voiding Method Toilet Toilet # Voids 1 1 - Exam General appearance: The patient is alert, oriented, in no acute distress. HET: Head is normocephalic and atraumatic. Sclera non-icteric. Neck: Supple Heart: S1 S2. Regular rate and rhythm. Lungs: No crackles or wheezes are heard. Abdomen: Soft, tender to palpation in epigastric and left upper quadrant region, nondistended with bowel sounds. No rigidity or guarding. Extremities: Normal skin color and turgor. No edema bilaterally. Neurological: No focal deficits. - Labs CBC & Chem 7: 06/14/20 06:56 06/14/20 06:56 Labs: Abnormal Lab Results - Last 24 Hours (Table) 06/14/20 06/14/20 Range/Units 06:56 06:56 WBC 2.8 L (3.8-10.6) k/uL RBC 3.53 L (3.80-5.40) m/uL Hgb 10.9 L (11.4-16.0) gm/dL Plt Count 149 L (150-450) k/uL Chloride 110 H (98-107) mmol/L Glucose 105 H (74-99) mg/dL Calcium 8.2 L (8.4-10.2) mg/dL AST 112 H (14-36) U/L ALT 216 H (4-34) U/L Alkaline Phosphatase 342 H (38-126) U/L Total Protein 5.2 L (6.3-8.2) g/dL Albumin 2.7 L (3.5-5.0) g/dL Lipase 348 H (23-300) U/L Assessment and Plan Assessment: (1) Acute pancreatitis Narrative/Plan: 60-year-old female presents to the hospital with complaints of abdominal pain found to have findings of pancreatitis on a computed tomography scan of the abdomen with dilated bile ducts and, or wall thickening. Currently being treated for gallstone pancreatitis. Patient had elevation of liver enzymes with total bilirubin 2.4, aphatase 447, AST 275 andALT of 318. Total Bili increased today to 3.1, alkaline phosphatase 359, AST 154, a L2 to 33. Unclear if this is secondary to a gallstone which is passed through the bile ducts, choledocholithiasis, cholecystitis or oher etiology. Current Visit: Yes Status: Acute Code(s): K85.90 - ACUTE PANCREATITIS WITHOUT NECROSIS OR INFECTION, UNSP SNOMED Code(s): 794745919 (2) Abdominal pain Current Visit: Yes Status: Acute Code(s): R10.9 - UNSPECIFIED ABDOMINAL PAIN SNOMED Code(s): 33737592 (3) Nausea and vomiting Current Visit: Yes Status: Acute Code(s): R11.2 - NAUSEA WITH VOMITING, UNSP ECIFIED SNOMED Code(s): 65674531 (4) Transaminitis Current Visit: Yes Status: Acute Code(s): R74.0 - NONSPEC ELEV OF LEVELS OF TRANSAMNS & LACTIC ACID DEHYDRGNSE SNOMED Code(s): 294377738 Plan: supportive care nothing by mouth Surgical service consult Continue IV fluid hydration Continue pain control MRCP completed pending results to rule out choledocholithiasis, ERCP contingent on findings from MRCP Continue broad-spectrum antibiotic therapy Thank you for allowing us to participate in the plan of care of your patient The impression and plan of care has been dictated as directed. Dr. Angely Jarrell I performed a history and examination of this patient, discussed the same with the dictator. I agree with the dictator's note ,documented as a scribe. Any additional findings or plans will be noted.
--- NOTE | 2020-06-14 17:35 | P.PN ---
Subjective Progress Note Date: 06/14/20 patient's doing much better after her procedure yesterday. She has no complaints no nausea vomiting no fevers chills Objective - Vital Signs Vital signs: Vital Signs Temp 98.3 F 06/14/20 16:20 Pulse 63 06/14/20 16:20 Resp 18 06/14/20 16:20 BP 120/78 06/14/20 16:20 Pulse Ox 96 06/14/20 16:20 Intake & Output 06/13/20 06/14/20 06/14/20 18:59 06:59 18:59 Intake Total 660 Output Total 400 300 Balance 260 -300 Intake: IV 600 Oral 60 Output: Urine 400 300 Other: Voiding Method Toilet Toilet # Voids 1 1 - Constitutional General appearance: Present: cooperative - Gastrointestinal Gastrointestinal Comment(s): soft nontender nondistended - Labs CBC & Chem 7: 06/14/20 06:56 06/14/20 06:56 Labs: Abnormal Lab Results - Last 24 Hours (Table) 06/14/20 06/14/20 Range/Units 06:56 06:56 WBC 2.8 L (3.8-10.6) k/uL RBC 3.53 L (3.80-5.40) m/uL Hgb 10.9 L (11.4-16.0) gm/dL Plt Count 149 L (150-450) k/uL Chloride 110 H (98-107) mmol/L Glucose 105 H (74-99) mg/dL Calcium 8.2 L (8.4-10.2) mg/dL AST 112 H (14-36) U/L ALT 216 H (4-34) U/L Alkaline Phosphatase 342 H (38-126) U/L Total Protein 5.2 L (6.3-8.2) g/dL Albumin 2.7 L (3.5-5.0) g/dL Lipase 348 H (23-300) U/L Assessment and Plan Assessment: choledocholithiasis Plan: patient's doing much better after ERCP. Her bilirubin has decreased.we'll plan for laparoscopic Cholecystectomy tomorrow with Dr. Carty
[2020-06-14] MEDS: tiZANidine 4 MG TAB PO PRN ×2 (18:31→23:06)
[2020-06-14 20:12] LABS: Glucose,Whole Blood 133 mg/dL (75-99)
[2020-06-14] MEDS: ALPRAZolam 1 MG TAB PO PRN (23:06)
[2020-06-15] MEDS: KETOROLAC 15 MG/ML 1 ML VIAL IVP PRN (05:13)
[2020-06-15] MEDS: PIPERACILLIN-TAZOBACTAM 3.375 GM in SODIUM CHLORIDE 0.9% 100 ML IVPB SCH ×3 (07:07→20:21)
[2020-06-15 08:04] LABS: Basophils % (A) 1 %; Eosinophils # (A) 0.2 k/uL (0-0.7); Eosinophils % (A) 5 %; HCT 35.6 % (34.0-46.0); HGB 11.5 gm/dL (11.4-16.0); Lymphocytes # (A) 0.9 k/uL (1.0-4.8); Lymphocytes % (A) 22 %; MCH 30.7 pg (25.0-35.0); MCHC 32.3 g/dL (31.0-37.0); MCV 95.1 fL (80.0-100.0); Mean Platelet Volume 9.3; Monocytes # (A) 0.3 k/uL (0-1.0); Monocytes % (A) 7 %; Neutrophils # (A) 2.6 k/uL (1.3-7.7); Neutrophils % (A) 64 %; Platelet Count 163 k/uL (150-450); RBC 3.74 m/uL (3.80-5.40); RDW 13.3 % (11.5-15.5)
--- NOTE | 2020-06-15 08:18 | P.PN ---
Subjective Progress Note Date: 06/15/20 Principal diagnosis: Abdominal pain. Patient seen and examined at bedside. Patient's little anxious for her surgery. Surgery scheduled for 4 PM today. Patient denies chest pain, shortness of breath, nausea, vomiting, fever, or chills. Patient is a 60-year-old female with chronic back and neck pain, peptic ulcer disease, prior tobacco abuse who presented to the hospital with complaints of abdominal pain. In the ER she underwent an extensive evaluation. On arrival her vital signs were within normal limits. She did reach a T-max of 100.2 on the ER. Initial laboratory analysis showed white blood cell count 12.4, total bilirubin 1.8, AST 405, ALT 356 alkaline phosphatase 447, lipase greater than 20,000, LDH 822, urinalysis is negative. She underwent a CT abdomen and pelvis which demonstrated inflammatory changes adjacent to the body of the pancreas with no pseudocyst or abscess formation. Also noted a distended gallbladder with very prominent common bile duct and some hepatic duct dilatation. She subsequently underwent a gallbladder ultrasound which showed a distended gallbladder with dilated common bile duct and a positive Mortensen sign. She was started on IV fluids, pain control, antiemetics, Rocephin, and Flagyl. She was admitted for further monitoring. GI and general surgery were consulted. MRCP demonstrated choledocholithiasis. Patient was then taken for ERCP on 06/13 and had a biliary sphincterotomy with balloon stone extraction. Objective - Vital Signs Vital signs: Vital Signs Temp 98.7 F 06/14/20 23:00 Pulse 68 06/14/20 23:00 Resp 18 06/14/20 23:00 BP 122/78 06/14/20 23:00 Pulse Ox 100 06/14/20 23:00 Intake & Output 06/14/20 06/15/20 06/15/20 18:59 06:59 18:59 Intake Total 820 Balance 820 Intake: Oral 820 Other: # Voids 1 # Bowel Movements 1 - Exam General: [non toxic], [no distress], [appears at stated age] Derm: [warm], [dry] Head: [atraumatic], [normocephalic], [symmetric] Eyes: [EOMI], [no lid lag], [anicteric sclera] Mouth: [no lip lesion], [mucus membranes moist] Cardiovascular: [S1S2 reg], [no murmur], [positive posterior tibial pulse bilateral], Lungs: [CTA bilateral], [no rhonchi, no rales] , [no accessory muscle use] Abdominal: [soft], [ nontender to palpation], [no guarding], [no appreciable organomegaly] Ext: [no gross muscle atrophy], [no edema], [no contractures] Neuro: [ CN II-XI grossly intact], [no focal neuro deficits] Psych: [Alert], [oriented], [appropriate affect] . - Labs CBC & Chem 7: 06/15/20 07:33 06/14/20 06:56 Labs: Abnormal Lab Results - Last 24 Hours (Table) 06/14/20 06/15/20 Range/Units 20:11 07:33 RBC 3.74 L (3.80-5.40) m/uL Lymphocytes # 0.9 L (1.0-4.8) k/uL POC Glucose (mg/dL) 133 H (75-99) mg/dL Assessment and Plan Assessment: Acute cholecystitis with acute pancreatitis secondary to choledocholithiasis, with sepsis -IV fluids decreased -Nothing by mouth -Pain control -Antiemetics -Rocephin and Flagyl -GI recommendations appreciated: MRCP 06/13 followed by ERCP with stone removal. - Surgery recommendations appreciated: Cholecystectomy scheduled for today at 4 PM Transaminitis secondary to above improving -Supportive care -Follow liver enzymes Chronic pain due to Arthritis stable -Restart tizanidine and tramadol when necessary -Supportive care Hypoglycemia -Fluids transition to D5 half-normal saline -Follow blood sugars DVT prophylaxis: Heparin Discussed with: Patient, nursing Anticipated discharge: Tomorrow Anticipated discharge place: Home A total of 35 minutes was spent on the care of this complex patient more than 50% of the time was spent in counseling and care coordination.
[2020-06-15 08:31] LABS: Glucose 102 mg/dL (74-99); Total Protein 5.7 g/dL (6.3-8.2)
[2020-06-15 08:32] LABS: ALT 192 U/L (4-34); AST 76 U/L (14-36); African American GFR (CKD) >90 (>60 ml/min/1.73 sqM); Alkaline Phosphatase 338 U/L (38-126); Anion Gap 5 mmol/L; Blood Urea Nitrogen 3 mg/dL (7-17); Calcium 8.6 mg/dL (8.4-10.2); Carbon Dioxide 24 mmol/L (22-30); Chloride 110 mmol/L (98-107); Non-African American GFR(CKD) >90 (>60 ml/min/1.73 sqM); Potassium 3.6 mmol/L (3.5-5.1); Sodium 139 mmol/L (137-145)
[2020-06-15] MEDS: PANTOPRAZOLE 40 MG/10 ML VIAL IVP SCH (09:25)
[2020-06-15] MEDS: HEPARIN SODIUM,PORCINE 5,000 UNIT/ML 1 ML VIAL SQ SCH ×2 (09:25→18:43)
[2020-06-15] MEDS: ALPRAZolam 1 MG TAB PO PRN ×2 (09:27→18:37)
--- NOTE | 2020-06-15 09:35 | P.PN ---
Subjective Progress Note Date: 06/15/20 Principal diagnosis: Abdominal pain Patient was seen and examined sitting up in the recliner. She appears comfortable in no acute distress. No acute changes through the night. She denies any abdominal pain, nausea, vomiting, or diarrhea. No fevers or chills through the night. She is status post successful ERCP. Her labs continue to trend down, today's lipase is 198, total bili 1.0, alkaline phosphatase 338, AST 76, PLT 192. She is scheduled with Dr. Carty for a cholecystectomy this afternoon. Objective - Vital Signs Vital signs: Vital Signs Temp 98.7 F 06/14/20 23:00 Pulse 68 06/14/20 23:00 Resp 18 06/14/20 23:00 BP 122/78 06/14/20 23:00 Pulse Ox 100 06/14/20 23:00 Intake & Output 06/14/20 06/15/20 06/15/20 18:59 06:59 18:59 Intake Total 820 Balance 820 Intake: Oral 820 Other: # Voids 1 # Bowel Movements 1 - Exam General appearance: The patient is alert, oriented, in no acute distress. HET: Head is normocephalic and atraumatic. Sclera non-icteric. Neck: Supple Heart: S1 S2. Regular rate and rhythm. Lungs: No crackles or wheezes are heard. Abdomen: Soft, nontender, nondistended with bowel sounds. No rigidity or guarding. Extremities: Normal skin color and turgor. No edema bilaterally. Neurological: No focal deficits. - Labs CBC & Chem 7: 06/15/20 07:33 06/15/20 07:33 Labs: Abnormal Lab Results - Last 24 Hours (Table) 06/14/20 06/15/20 06/15/20 Range/Units 20:11 07:33 07:33 RBC 3.74 L (3.80-5.40) m/uL Lymphocytes # 0.9 L (1.0-4.8) k/uL Chloride 110 H (98-107) mmol/L BUN 3 L (7-17) mg/dL Creatinine 0.49 L (0.52-1.04) mg/dL Glucose 102 H (74-99) mg/dL POC Glucose (mg/dL) 133 H (75-99) mg/dL AST 76 H (14-36) U/L ALT 192 H (4-34) U/L Alkaline Phosphatase 338 H (38-126) U/L Total Protein 5.7 L (6.3-8.2) g/dL Albumin 3.0 L (3.5-5.0) g/dL Assessment and Plan Assessment: (1) Acute pancreatitis Narrative/Plan: 60-year-old female presents to the hospital with complaints of abdominal pain found to have findings of pancreatitis on a computed tomography scan of the abdomen with dilated bile ducts and, or wall thickening. Currently being treated for gallstone pancreatitis. Patient had elevation of liver enzymes with total bilirubin 2.4, aphatase 447, AST 275 andALT of 318. Total Bili increased today to 3.1, alkaline phosphatase 359, AST 154, a L2 to 33. Unclear if this is secondary to a gallstone which is passed through the bile ducts, choledocholithiasis, cholecystitis or oher etiology. Current Visit: Yes Status: Acute Code(s): K85.90 - ACUTE PANCREATITIS WITHOUT NECROSIS OR INFECTION, UNSP SNOMED Code(s): 347470907 (2) Abdominal pain Current Visit: Yes Status: Acute Code(s): R10.9 - UNSPECIFIED ABDOMINAL PAIN SNOMED Code(s): 00057870 (3) Nausea and vomiting Current Visit: Yes Status: Acute Code(s): R11.2 - NAUSEA WITH VOMITING, UNSPECIFIED SNOMED Code(s): 14573551 (4) Transaminitis Current Visit: Yes Status: Acute Code(s): R74.0 - NONSPEC ELEV OF LEVELS OF TRANSAMNS & LACTIC ACID DEHYDRGNSE SNOMED Code(s): 430042555 Plan: supportive care nothing by mouth Surgical service consult, plan for cholecystectomy Continue IV fluid hydration Continue pain control status post successful ERCP Continue broad-spectrum antibiotic therapy Thank you for allowing us to participate in the plan of care of your patient The impression and plan of care has been dictated as directed. Dr. Angely Jarrell I performed a history and examination of this patient, discussed the same with the dictator. I agree with the dictator's note ,documented as a scribe. Any additional findings or plans will be noted.
[2020-06-15] MEDS ORDERED: ACETAMINOPHEN TAB 500 MG TAB PO STA (13:03)
[2020-06-15] MEDS ORDERED: IV FLUID CONTINUATION 1,000 ML IV ONE (14:34)
[2020-06-15] MEDS: ONDANSETRON 4 MG/2 ML VIAL IVP PRN (14:50)
[2020-06-15] MEDS ORDERED: ROCURONIUM BROMIDE 10 MG/ML 5 ML VIAL IV ONE (15:57)
[2020-06-15] MEDS ORDERED: GLYCOPYRROLATE 0.2 MG/ML 2 ML VIAL ONE (15:57)
[2020-06-15] MEDS ORDERED: fentaNYL (PF) 50 MCG/ML 2 ML AMP ONE (15:57)
[2020-06-15] MEDS ORDERED: SUCCINYLCHOLINE CHLORIDE 100 MG/5 ML SYR IV ONE (15:57)
[2020-06-15] MEDS ORDERED: ONDANSETRON 4 MG/2 ML VIAL ONE (15:57)
[2020-06-15] MEDS ORDERED: PROPOFOL 10 MG/ML 20 ML VIAL IV ONE (15:57)
[2020-06-15] MEDS ORDERED: NEOSTIGMINE 1 MG/ML 10 ML VIAL ONE (15:57)
[2020-06-15] MEDS ORDERED: LIDOCAINE 1% INJ 10MG/ML (20 ML MDV) ONE (15:57)
[2020-06-15] MEDS ORDERED: MIDAZOLAM 2 MG/2 ML VIAL ONE (15:57)
[2020-06-15] MEDS ORDERED: LIDOCAINE 1%-EPI 1:100,000 20 ML VIAL SQ ONE (16:17)
[2020-06-15] MEDS ORDERED: LACTATED RINGERS 1,000 ML IV ONE ×3 (16:21→18:09)
--- NOTE | 2020-06-15 17:03 | P.OP ---
Date of Procedure: 06/15/20 Preoperative Diagnosis: Gallstone pancreatitis Choledocholithiasis Cholelithiasis Cholecystitis Postoperative Diagnosis: Gallstone pancreatitis Choledocholithiasis Cholelithiasis Cholecystitis Procedure(s) Performed: Laparoscopic cholecystectomy Anesthesia: ELLIOT Surgeon: Lucero Carty Pathology: other (Gallbladder) Condition: stable Disposition: floor Indications for Procedure: 60-year-old female presented to the emergency department with complaints of epigastric and right upper quadrant abdominal pain. On workup, she was found to have gallstone pancreatitis. Based on elevated bilirubin, concern was for choledocholithiasis. The patient did have an MRCP that confirmed choledocholithiasis. She then underwent an ERCP with retrieval of choledocholithiasis. The patient's bilirubin did trend down after procedure. Recommendation was made for cholecystectomy. The patient was explained the ri sks, benefits and alternatives to the procedure and did provide consent prior to attending the operating suite. Operative Findings: Edematous gallbladder and distended gallbladder Description of Procedure: The patient was brought into the operating suite and placed in supine position on the operating table. Sedation was provided by anesthesia and the patient underwent endotracheal intubation. The patient was then prepped and draped in regular sterile fashion. Local anesthetic was administered. An infraumbilical incision was made and dissection was carried to the fascia. The fascia was incised and a 12 mm port was placed. Pneumoperitoneum was then achieved. The patient was then placed in appropriate position. 3 additional 5 mm ports were placed. 2 were placed in the right upper quadrant and one was placed at the subxiphoid level. The gallbladder was then grasped and retracted and was noted to be significantly distended and edematous. [place] dissector was used to dissect the cystic duct and cystic artery from surrounding peritoneal attachments. Cystic duct was skeletonized, 2 clips were placed proximally and one was placed distally. The cystic duct was then ligated. Further dissection revealed the cystic artery and the cystic artery was skeletonized. 2 clips were placed proximally one was placed distally on the cystic artery and the cystic artery was ligated. Cautery was then used to dissect the gallbladder from the gallbladder fossa. Hemostasis was maintained throughout this portion of the procedure. The gallbladder was then placed in an Endo Catch bag and removed from the abdomen from the infra umbilical incision site. Irrigation was then placed in the right upper quadrant and suctioned. Hemostasis was maintained. At this point the 12 mm infraumbilical incision site fascia was closed under direct visualization using an 0 Vicryl suture and a Raul-Melissa device. Pneumoperitoneum was then released and all ports removed from the abdomen. All skin incisions were then closed using 4-0 Vicryl subcuticular suture. The patient was awakened in the operating suite and taken to postanesthesia care unit in stable condition.
[2020-06-15] MEDS ORDERED: MORPHINE SULFATE 4MG/4ML SYRG IVP ONE ×4 (17:16→17:34)
[2020-06-15] MEDS ORDERED: ONDANSETRON 4 MG/2 ML VIAL IVP ONE (17:34)
[2020-06-15] MEDS ORDERED: diphenhydrAMINE 50 MG/ML 1 ML VIAL IVP ONE (17:44)
[2020-06-15] MEDS ORDERED: METOCLOPRAMIDE 5 MG/ML 2 ML VIAL IVP ONE (17:44)
[2020-06-15] MEDS: DEXTROSE 5%-0.45% NACL 1,000 ML IV SCH ×2 (18:42→20:27)
[2020-06-15] MEDS: KETOROLAC 15 MG/ML 1 ML VIAL IVP SCH (18:52)
[2020-06-15] MEDS: tiZANidine 4 MG TAB PO PRN (22:56)
[2020-06-15] MEDS: MORPHINE SULFATE 2 MG/ML SYRINGE IVP PRN (22:57)
[2020-06-16] MEDS: KETOROLAC 15 MG/ML 1 ML VIAL IVP SCH ×3 (00:15→11:46)
[2020-06-16] MEDS: HEPARIN SODIUM,PORCINE 5,000 UNIT/ML 1 ML VIAL SQ SCH ×2 (00:17→08:05)
[2020-06-16] MEDS: MORPHINE SULFATE 2 MG/ML SYRINGE IVP PRN (03:07)
[2020-06-16] MEDS: PIPERACILLIN-TAZOBACTAM 3.375 GM in SODIUM CHLORIDE 0.9% 100 ML IVPB SCH (03:22)
[2020-06-16] MEDS: PANTOPRAZOLE 40 MG/10 ML VIAL IVP SCH (08:05)
[2020-06-16 08:11] LABS: Basophils % (A) 1 %; Eosinophils # (A) 0.2 k/uL (0-0.7); Eosinophils % (A) 3 %; HGB 11.5 gm/dL (11.4-16.0); Lymphocytes # (A) 1.4 k/uL (1.0-4.8); Lymphocytes % (A) 30 %; MCH 30.5 pg (25.0-35.0); MCV 95.5 fL (80.0-100.0); Mean Platelet Volume 9.7; Monocytes # (A) 0.4 k/uL (0-1.0); Monocytes % (A) 9 %; Neutrophils # (A) 2.6 k/uL (1.3-7.7); Neutrophils % (A) 54 %; Platelet Count 157 k/uL (150-450); RBC 3.77 m/uL (3.80-5.40); RDW 13.4 % (11.5-15.5); WBC 4.7 k/uL (3.8-10.6)
[2020-06-16 08:24] LABS: ALT 151 U/L (4-34); AST 57 U/L (14-36); African American GFR (CKD) >90 (>60 ml/min/1.73 sqM); Albumin 2.9 g/dL (3.5-5.0); Alkaline Phosphatase 286 U/L (38-126); Anion Gap 5 mmol/L; Blood Urea Nitrogen <2 mg/dL (7-17); Calcium 8.2 mg/dL (8.4-10.2); Carbon Dioxide 26 mmol/L (22-30); Chloride 107 mmol/L (98-107); Glucose 99 mg/dL (74-99); Non-African American GFR(CKD) >90 (>60 ml/min/1.73 sqM); Potassium 3.4 mmol/L (3.5-5.1); Sodium 138 mmol/L (137-145); Total Bilirubin 0.8 mg/dL (0.2-1.3); Total Protein 5.5 g/dL (6.3-8.2)
[2020-06-16 09:41] VITALS: PULSE 72
--- NOTE | 2020-06-16 11:01 | P.PN ---
Subjective Progress Note Date: 06/16/20 Pt seen and examined at bedside. States she has some soreness in the abdomen. Denies nausea/vomiting. Objective - Vital Signs Vital signs: Vital Signs Temp 97.0 F L 06/16/20 08:00 Pulse 72 06/16/20 08:00 Resp 18 06/16/20 08:00 BP 126/86 06/16/20 08:00 Pulse Ox 95 06/16/20 08:00 Intake & Output 06/15/20 06/16/20 06/16/20 18:59 06:59 18:59 Intake Total 1550 Output Total 5 Balance 1545 Weight 70.5 kg Intake: IV 1550 Output: Estimated Blood Loss 5 Other: Voiding Method Toilet # Voids 3 2 - Constitutional General appearance: Present: cooperative, no acute distress - Gastrointestinal Gastrointestinal Comment(s): soft, appropriate tenderness, nondistended, no rebound, no guarding - Musculoskeletal Musculoskeletal: Present: generalized weakness - Psychiatric Psychiatric: Present: A&O x's 3 - Labs CBC & Chem 7: 06/16/20 06:15 06/16/20 06:15 Labs: Abnormal Lab Results - Last 24 Hours (Table) 06/16/20 06/16/20 Range/Units 06:15 06:15 RBC 3.77 L (3.80-5.40) m/uL Potassium 3.4 L (3.5-5.1) mmol/L BUN <2 L (7-17) mg/dL Creatinine 0.50 L (0.52-1.04) mg/dL Calcium 8.2 L (8.4-10.2) mg/dL AST 57 H (14-36) U/L ALT 151 H (4-34) U/L Alkaline Phosphatase 286 H (38-126) U/L Total Protein 5.5 L (6.3-8.2) g/dL Albumin 2.9 L (3.5-5.0) g/dL Assessment and Plan Plan: 60-year-old female POD #1, lap cholecystectomy - Patient is progressing well. Tolerating CLD. Advance to low fat diet. Surgically stable for discharge. Labs reviewed. F/U in 2 weeks.
[2020-06-16] MEDS ORDERED: POTASSIUM CHLORIDE ER 20 MEQ TAB.ER PO STA (11:40)
--- NOTE | 2020-06-16 11:57 | P.DS ---
Providers Date of admission: 06/11/20 20:24 Expected date of discharge: 06/16/20 Attending physician: Akash Patel MD Consults: 06/11/20 20:22 Consult Physician Urgent Consulting Provider: Lucero Carty Consult Reason/Comments: acute pancreatitis Do you want consulting provider notified?: Yes Consult Physician Urgent Consulting Provider: Keven Alex Consult Reason/Comments: acute pancreatitis, possible choledocholithaisis Do you want consulting provider notified?: Yes Primary care physician: Physician Nonstaff Hospital Course: Admitting diagnoses: 1. Acute cholangitis 2. Acute pancreatitis Stress diagnoses: 1. Acute cholecystitis 2. Acute pancreatitis 3. Sepsis 4. Gallbladder dysfunction 5. Status post cholecystectomy 6. Transaminitis 7. Chronic pain due to arthritis Patient seen and examined at bedside. Patient is postop day 1 status post cholecystectomy. Patient is tolerating diet well. Abdominal pain has improved since yesterday. Patient denies nausea, vomiting, fever, chills, or diarrhea. Patient is a 60-year-old female with chronic back and neck pain, peptic ulcer disease, prior tobacco abuse who presented to the hospital with complaints of abdominal pain. In the ER she underwent an extensive evaluation. On arrival her vital signs were within normal limits. She did reach a T-max of 100.2 on the ER. Initial laboratory analysis showed white blood cell count 12.4, total bilirubin 1.8, AST 405, ALT 356 alkaline phosphatase 447, lipase greater than 20,000, LDH 822, urinalysis is negative. She underwent a CT abdomen and pelvis which demonstrated inflammatory changes adjacent to the body of the pancreas with no pseudocyst or abscess formation. Also noted a distended gallbladder with very prominent common bile duct and some hepatic duct dilatation. She subsequently underwent a gallbladder ultrasound which showed a distended gallbladder with dilated common bile duct and a positive Mortensen sign. She was started on IV fluids, pain control, antiemetics, Rocephin, and Flagyl. She was admitted for further monitoring. GI and general surgery were consulted. MRCP demonstrated choledocholithiasis. Patient was then taken for ERCP on 06/13 and had a biliary sphincterotomy with balloon stone extraction. Patient underwent a cholecystectomy on 06/15/2020. Treatment patient's pancreatic enzymes and liver enzymes improved. Vitals: Temperature 98.3 heart rate 61 respiratory rate 18 blood pressure 120/72 oxygen saturation 92% room air General: [non toxic], [no distress], [appears at stated age] Derm: [warm], [dry] Head: [atraumatic], [normocephalic], [symmetric] Eyes: [EOMI], [no lid lag], [anicteric sclera] Mouth: [no lip lesion], [mucus membranes moist] Cardiovascular: [S1S2 reg], [no murmur], [positive posterior tibial pulse bilateral], Lungs: [CTA bilateral], [no rhonchi, no rales] , [no accessory muscle use] Abdominal: [soft], [ mild tenderness to palpation], [no guarding], [no appr eciable organomegaly] Ext: [no gross muscle atrophy], [no edema], [no contractures] Neuro: [ CN II-XI grossly intact], [no focal neuro deficits] Psych: [Alert], [oriented], [appropriate affect] Follow-up with PCP in 2-7 days Follow-up with general surgery in 2-4 weeks Diet regular Activity as tolerated Condition fair Patient Condition at Discharge: Fair Plan - Discharge Summary Discharge Rx Participant: Yes New Discharge Prescriptions: No Action tiZANidine [Zanaflex] 4 mg PO Q12H PRN PRN Reason: Pain ALPRAZolam [Xanax] 1 mg PO Q12H PRN PRN Reason: Anxiety RX: traMADol HCL 50 mg PO Q6H PRN PRN Reason: Pain Esomeprazole Magnesium [NexIUM] 20 mg PO BID [id number] [Excedrin] 2 tab PO DAILY PRN PRN Reason: Pain Discharge Medication List ALPRAZolam [Xanax] 1 mg PO Q12H PRN 10/13/19 [History] RX: traMADol HCL 50 mg PO Q6H PRN 10/13/19 [History] tiZANidine [Zanaflex] 4 mg PO Q12H PRN 10/13/19 [History] Varfdos-Tuky-Mfme [id number] [Excedrin] 2 tab PO DAILY PRN 06/11/20 [History] Esomeprazole Magnesium [NexIUM] 20 mg PO BID 06/11/20 [History] Follow up Appointment(s)/Referral(s): Nonstaff,Physician [Primary Care Provider] - 1-2 days Lucero Carty DO [Doctor of Osteopathic Medicine] - 2 Weeks Activity/Diet/Wound Care/Special Instructions: Please go to [email or web address] to find a physician.
[2020-06-16] MEDS ORDERED: LEVOFLOXACIN 500 MG TAB PO SCH (12:00)
[2020-06-16 12:30] VITALS: BP 135/80; RESP 16; TEMP 98.4
== END 2020-06-16 13:53 | disposition home or self-care (01) | DRG 853 ==
LOC: EC 17:30 → 6PED 20:24
PROVIDERS: ADMIT Internal Medicine; ATTEND Internal Medicine
PROC: 0FC98ZZ Extirpation of Matter from Common Bile Duct, Via Natural or Artificial Opening Endoscopic (ICD-10-PCS; 2020-06-11)
PROC: 0F798ZZ Dilation of Common Bile Duct, Via Natural or Artificial Opening Endoscopic (ICD-10-PCS; 2020-06-11)
PROC: 0FT44ZZ Resection of Gallbladder, Percutaneous Endoscopic Approach (ICD-10-PCS; principal; 2020-06-15 16:00)
DX: A41.9 Sepsis, unspecified organism (principal); K85.10 Biliary acute pancreatitis without necrosis or infection; K80.62 Calculus of gallbladder and bile duct with acute cholecystitis without obstruction; E16.2 Hypoglycemia, unspecified; K82.8 Other specified diseases of gallbladder; I49.3 Ventricular premature depolarization; K21.9 Gastro-esophageal reflux disease without esophagitis; K59.09 Other constipation; G89.29 Other chronic pain; M19.90 Unspecified osteoarthritis, unspecified site; M54.2 Cervicalgia; F41.9 Anxiety disorder, unspecified; Z79.82 Long term (current) use of aspirin; Z79.899 Other long term (current) drug therapy; Z87.891 Personal history of nicotine dependence; Z96.659 Presence of unspecified artificial knee joint; Z87.11 Personal history of peptic ulcer disease; Z87.39 Personal history of other diseases of the musculoskeletal system and connective tissue; Z98.890 Other specified postprocedural states; Z98.891 History of uterine scar from previous surgery; Z88.5 Allergy status to narcotic agent; Z82.49 Family history of ischemic heart disease and other diseases of the circulatory system
CPT/HCPCS: 36415; 43262; 43264; 74177; 74181; 74328; 76705; 80048; 80053; 81003; 82150; 82247; 82248; 83605; 83615; 83690; 83735; 84450; 84460; 85025; 85027; 85610; 85730; 88304; 93005; 96361; 96374; 96375; 99285

== ENCOUNTER → 2022-08-28 | Outpatient (CLI) | payer OTHER ==
[~2022-08-28] MED LIST: DOBUTamine DRIP for NUC MED 500 MG in DEXTROSE/WATER 1 250ML.BAG IV PRN
--- NOTE | 2022-08-28 12:44 | CA ---
Dobutamine Stress Echocardiogram Report Zena De Oliveira Age: 62 Gender: F : 1960 Exam Date: 08/28/2022 10:27 Exam Location: [facility] Ordering Physician: Rossi Decker MD Referring Physician: ROSSI DECKER,, Repairer Shoe Sticks: FENG Technologist: Ht (in): 67 Wt (lb): 161 Procedure CPT: Indication: R94.31 ICD-9 Codes: Rhythm: Patient History: Cardiac Medications: Medications in past 24 hours: Contrast: N/A Total Dose (mL): Stress Results Protocol: Dobutamine Peak Dose (???g/kg/min): 40 Duration (min:sec): Atropine:(mg) None Target HR: 135 Double Product: [id number] Resting HR: 77 Resting BP: 124 / 74 Peak HR: 137 Peak BP: 130 / 53 Max Predicted HR: 159 86 % Max Predicted HR Stress Summary: BP Response: Reason for Termination: Exceeded target heart rate (85% max predicted) Cardiac Symptoms: NO SYMPTOMS ECG Analysis Resting EKG: Normal sinus rhythm, normal ECG Stress EKG: No abnormal ST/T wave changes with exercise Arrhythmia: Occasional PVCs Echo Analysis Base Echo Analysis: Normal resting echocardiogram. Low Echo Anaylsis: No wall motion changes with stress. Peak Echo Analysis: No wall motion changes with stress. Recovery Echo: No wall motion changes with stress. MEASUREMENTS (Male/Female) Normal Values CONCLUSIONS 1. Normal electrocardiographic response to dobutamine infusion 2. Normal stress echocardiogram with no evidence of stress induced ischemia. Dr. Kris Thomas MD (Electronically Signed) Final Date: 28 August 2022 12:43
--- NOTE | 2022-08-28 18:27 | CA ---
Transthoracic Echo Report Name: Zena De Oliveira Age: 62 Gender: F : 1960 Exam Date: 08/28/2022 10:18 Exam Location: [facility] Ht (in): 67 Wt (lb): 161 Ordering Physician: Cornell Pineda MD Attending/Referring Phys: Mechanic Field Service Adriana Garg RDCS Procedure CPT: Indications: R94.31 Cardiac Hx: Technical Quality: Fair Contrast 1: Total Dose (mL): Contrast 2: Total Dose (mL): MEASUREMENTS (Male / Female) Normal Values 2D ECHO LV Diastolic Diameter PLAX 5.0 cm 4.2 - 5.9 / 3.9 - 5.3 cm LV Systolic Diameter PLAX 3.2 cm IVS Diastolic Thickness 1.1 cm 0.6 - 1.0 / 0.6 - 0.9 cm LVPW Diastolic Thickness 1.0 cm 0.6 - 1.0 / 0.6 - 0.9 cm LV Relative Wall Thickness 0.4 RV Internal Dim ED PLAX 2.9 cm LA Volume 23.7 cm??? 18 - 58 / 22 - 52 cm??? M-MODE Aortic Root Diameter MM 3.0 cm LA Systolic Diameter MM 3.1 cm LA Ao Ratio MM 1.0 AV Cusp Separation MM 2.3 cm DOPPLER AV Peak Velocity 110.3 cm/s AV Peak Gradient 4.9 mmHg MV Area PHT 4.3 cm??? Mitral E Point Velocity 89.4 cm/s Mitral A Point Velocity 96.5 cm/s Mitral E to A Ratio 0.9 MV Deceleration Time 176.5 ms MV E' Velocity 11.7 cm/s Mitral E to MV E' Ratio 7.7 TR Peak Velocity 244.2 cm/s TR Peak Gradient 23.9 mmHg Right Ventricular Systolic Press 26.6 mmHg FINDINGS Left Ventricle Mildly increased left ventricular wall thickness. Normal left ventricular systolic function with no obvious regional wall motion abnormalities. Left ventricular ejection fraction is estimated at 55-60 %. Right Ventricle Normal right ventricular size and function. Right ventricular systolic pressure within normal limits. Right Atrium Normal right atrial size. Left Atrium Normal left atrial size. Mitral Valve Structurally normal mitral valve. Mild mitral regurgitation. Aortic Valve Trileaflet aortic valve. No aortic valve stenosis or regurgitation. Tricuspid Valve Structurally normal tricuspid valve. Mild tricuspid regurgitation. Pulmonic Valve Trace pulmonic regurgitation. Pericardium No pericardial effusion. Aorta Normal size aortic root and proximal ascending aorta. CONCLUSIONS 1. Normal left ventricle size and systolic function 2. Mild mitral and tricuspid regurgitation. Previewed by: Dr. Kris Thomas MD (Electronically Signed) Final Date: 28 August 2022 18:26
== END | disposition home or self-care (01) ==
LOC: RADNMMAIN 09:42
PROVIDERS: ATTEND Internal Medicine
DX: I08.1 Rheumatic disorders of both mitral and tricuspid valves (principal); R94.31 Abnormal electrocardiogram [ECG] [EKG]
CPT/HCPCS: 93306; 93351